=== PATIENT | female | born 2005 | race Caucasian/White ===

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

== ENCOUNTER 2024-06-19 15:06 | Emergency (ER) | payer OTHER, SELFPAY ==
[2024-06-19 15:17] VITALS: BP 127/75; PULSE 102; RESP 16; TEMP 37.2; O2SAT 100
--- NOTE | 2024-06-19 15:23 | ED.NAVMDI ---
HPI - Nausea/Vomiting/Diarrhea General Chief complaint: Nausea/Vomiting/Diarrhea Stated complaint: VOMITING Time Seen by Provider: 06/19/24 15:20 Source: patient Mode of arrival: ambulatory Limitations: no limitations History of Present Illness HPI Narrative: Melanie is an 17-year-old female patient presenting to the clinic today with complaints nausea and vomiting. She reports that she only has nausea vomiting prior to test taking at college. Feels overly anxious and then ends up vomiting. Denies any weight loss. Denies any chest pain, shortness of breath, or abdominal pain. She denies any chance of . She is not sexually active. Last menstrual period- current. Denies any urinary symptoms Related Data Allergies Allergy/AdvReac Type Severity Reaction Status Date / Time No Known Allergies Allergy Verified 12/10/23 12:41 Review of Systems Review of Systems: Pertinent positives per HPI. Patient denies any fever, chills, rash, headache, visual changes, dizziness, cough, runny nose, sore throat, shortness of breath, chest pain, palpitations, diarrhea, constipation, abdominal pain, or any urinary issues. PMFSH Comments At the time of my signature, I reviewed and agree with the nursing past medical, surgical, social, and family history. There is no relevant family history pertinent to the patient complaint. Exam Narrative: General: Well-developed, well nourished, in no apparent distress. Head: Normocephalic, atraumatic. Cardio: Regular rate and rhythm, s1 and s2 normal, no murmur appreciated. Resp: Clear to auscultation bilaterally, no rhonchi, rales, wheezing or rubs. Abdomen: Soft, pliable, bowel sounds present in all quadrants, non-tender to palpation, no organomegly, no CVAT tenderness. Course Course Emergency Course: Portions of this record may have been created with voice recognition software. Level of Care: Express Care Visit Vital Signs Vital signs: Vital Signs Temperature 37.2 C 06/19/24 15:17 Pulse Rate 102 H 06/19/24 15:17 Respiratory Rate 16 06/19/24 15:17 Blood Pressure 127/75 06/19/24 15:17 Pulse Oximetry 100 06/19/24 15:17 Temperature 37.2 C 06/19/24 15:17 Pulse Rate 102 H 06/19/24 15:17 Respiratory Rate 16 06/19/24 15:17 Blood Pressure 127/75 06/19/24 15:17 Pulse Oximetry 100 06/19/24 15:17 Vital signs reviewed MDM - Nausea/Vomiting/Diarrhea MDM Narrative Medical decision making narrative: At the time of visit patient is resting comfortably on the exam table. Patient appears to be nontoxic. Plan: We will send in a prescription for Zofran and discussed use of Benadryl prior to test taking. Also discussed speaking to a counselor. Supportive measures were discussed with the patient and they voiced understanding discharge instructions and agrees to treatment plan. Return precautions reviewed Differential Diagnosis Differential diagnosis: Likely gastroenteritis and other (Test taking anxiety, acute nausea vomiting) Discharge Plan Discharge Clinical Impression: Test anxiety, Acute nausea with nonbilious vomiting Patient Disposition: Home, Self-Care Condition: Stable Instructions: Antibiotic Form, Acute Nausea and Vomiting (ED), Anxiety (ED) Additional Instructions: Increase fluids and stay well hydrated Take ondansetron as needed for nausea May try taking Benadryl 30 minutes prior to taking and exam to see if this helps alleviate your anxiety Follow-up with counselor as discussed Follow-up with your primary care doctor as needed Prescriptions: New ondansetron 4 mg tablet,disintegrating 4 mg PO Q6H PRN (Reason: nausea and vomiting) 7 Days Qty: 30 0RF No Action amoxicillin 875 mg tablet 875 mg PO Q12H 10 Days Qty: 20 0RF promethazine-DM 6.25-15 mg/5 mL syrup 5 ml PO Q4-6H PRN (Reason: cough) Qty: 118 0RF Follow-up/Referrals: PHYSICIAN,[employer] FENCE INSTALLER [Primary Care Provider] - Time of Disposition: 1
== END 2024-06-19 15:29 | disposition home or self-care (01) ==
PROVIDERS: Emergency Provider Nurse Practitioner Family
DX: F41.9 Anxiety disorder, unspecified (principal); R11.2 Nausea with vomiting, unspecified
CPT/HCPCS: 99213; G0463

== ENCOUNTER 2024-08-11 13:11 | Emergency (ER) | payer OTHER, SELFPAY ==
[2024-08-11 13:18] VITALS: BP 101/82; PULSE 102; RESP 16; TEMP 36.9; O2SAT 98
--- NOTE | 2024-08-11 13:21 | ED.EAR ---
HPI - Ear Problem General Chief complaint: Ear Stated complaint: Ear Pain Time Seen by Provider: 08/11/24 13:21 Source: patient Mode of arrival: ambulatory Limitations: no limitations History of Present Illness HPI Narrative: 18 yo F presents with c/o nasal/sinus congestion with mild pressure for 4 days. L ear pain starting today. Afebrile. Not taking any OTC meds to treat symptoms. All Systems reviewed and negative except as noted above. Related Data Allergies Allergy/AdvReac Type Severity Reaction Status Date / Time No Known Allergies Allergy Verified 08/11/24 13:16 Review of Systems Review of Systems: CONSTITUTIONAL: Denies fever, chills, or sweats. EYES: Denies visual changes, redness, or discharge. ENT: Reports rhinorrhea, congestion, sinus pressure, left ear pain. Denies sore throat CARDIOVASCULAR: Denies chest pain, palpitations, or edema. RESPIRATORY: Denies cough or dyspnea. GASTROINTESTINAL: Denies abdominal pain, nausea, vomiting, or diarrhea. GENITOURINARY: Denies dysuria or hematuria. SKIN: Denies rash or itching. MUSCULOSKELETAL: Denies back pain, joint pain, or myalgia. NEUROLOGIC: Denies headache, numbness, or weakness. PSYCHIATRIC: Denies anxiety or depression. All other systems reviewed are negative, except as documented in HPI. PMFSH Comments At time of signature, agree with nursing past medical, surgical, social and family history. There is no relevant family history pertinent to the presenting complaint. Exam Narrative: GENERAL: This is a well-nourished, well-developed patient, in no apparent distress. HEAD: normocephalic, atraumatic. EYES: PERRL. Sclera clear/white. Vision is grossly intact. EARS: External ears normal, auditory canals clear and without drainage, left TM erythematous with fluid, slightly bulging. Right TM normal. Without perforation bilaterally. Hearing grossly intact. NOSE: External nose normal with no obvious nasal discharge, nares without redness, no rhinorrhea. THROAT: Mucous membranes moist, posterior pharynx clear. NECK: Neck supple, non-tender without lymphadenopathy, masses or thyromegaly. CARDIOVASCULAR: Regular rate and rhythm without murmurs, gallops, or rubs. RESPIRATORY: Clear to auscultation. Breath sounds equal bilaterally. No wheezes, rales, or rhonchi. SKIN: warm, Dry, intact with no suspicious lesions or rash, good texture and turgor. NEURO: awake, alert, and oriented to person, place and time. There were no obvious focal neurologic abnormalities. EXTREMITIES: No joint tenderness, effusion, or edema noted. Course Course Level of Care: Express Care Visit Vital Signs Vital signs: Vital Signs Temperature 36.9 C 08/11/24 13:18 Pulse Rate 102 H 08/11/24 13:18 Respiratory Rate 16 08/11/24 13:18 Blood Pressure 101/82 08/11/24 13:18 Pulse Oximetry 98 08/11/24 13:18 Temperature 36.9 C 08/11/24 13:22 Pulse Rate 102 H 08/11/24 13:22 Respiratory Rate 16 08/11/24 13:22 Blood Pressure 101/82 08/11/24 13:22 Pulse Oximetry 98 08/11/24 13:22 Reviewed Medical Decision Making MDM Narrative Medical decision making narrative: Patient is aware of diagnosis, understands and agrees to treatment plan. Anticipatory guidance given. Patient agrees to follow-up as directed and is aware of reasons to seek care at the emergency department. Portions of this record may have been created with voice recognition software Vital Signs Vital Signs: Vital Signs Temperature 36.9 C 08/11/24 13:18 Pulse Rate 102 H 08/11/24 13:18 Respiratory Rate 16 08/11/24 13:18 Blood Pressure 101/82 08/11/24 13:18 Pulse Oximetry 98 08/11/24 13:18 Temperature 36.9 C 08/11/24 13:22 Pulse Rate 102 H 08/11/24 13:22 Respiratory Rate 16 08/11/24 13:22 Blood Pressure 101/82 08/11/24 13:22 Pulse Oximetry 98 08/11/24 13:22 Discharge Plan Discharge Clinical Impression: Acute sinusitis Acute serous otitis media of left ear Qualifiers: Recurrence: not specified as recurrent Qualified Code(s): H65.02 - Acute serous otitis media, left ear Patient Disposition: Home, Self-Care Condition: Stable Instructions: Antibiotic Form, Sinusitis (ED) Additional Instructions: Take medications as prescribed. Take Tylenol or ibuprofen every 6-8 hours as needed for pain and fever. Follow-up with your doctor if symptoms are not improving. Prescriptions: New amoxicillin 875 mg tablet 875 mg PO Q12H 10 Days Qty: 20 0RF fluticasone propionate [Flonase Allergy Relief] 50 mcg/actuation spray,suspension 1 spray intranasal BID Qty: 16 0RF Rx Instructions: administer into each nostril loratadine [Claritin] 10 mg tablet 10 mg PO DAILY Qty: 30 0RF Follow-up/Referrals: PHYSICIAN,HEALTH AND SAFETY CONSULTANT [Primary Care Provider] - Time of Disposition: 13:27
[2024-08-11 13:22] VITALS: BP 101/82; PULSE 102; RESP 16; TEMP 36.9; O2SAT 98
== END 2024-08-11 13:29 | disposition home or self-care (01) ==
PROVIDERS: Emergency Provider Nurse Practitioner Family
DX: J01.90 Acute sinusitis, unspecified (principal); H65.02 Acute serous otitis media, left ear
CPT/HCPCS: 99213; G0463

== ENCOUNTER 2024-09-20 04:01 | Day surgery (SDC) | payer OTHER, SELFPAY ==
[2024-09-20] VITALS (18 sets, daily range): BP systolic 86–116; BP diastolic 58–89; PULSE 51–83; RESP 14–20; TEMP 36.2–37.1; O2SAT 96–100
--- NOTE | ~2024-09-20 | CT_ITS ---
EXAMINATION: CT abdomen pelvis w con DATE: 09/20/2024 08:10 INDICATION: Right lower quadrant abdominal pain TECHNIQUE: Computed tomography (CT) of the abdomen and pelvis was performed with 100 mL Omnipaque-350 intravenous contrast. Automated exposure control and iterative reconstruction technique were employe d. The dose-length product was 211.16 mGy-cm. COMPARISON: None FINDINGS: Lung bases are clear. Heart size is normal. No pericardial or pleural effusion. Liver, gallbladder, s pleen, pancreas, bilateral adrenal glands and kidneys are normal. There is mild inflammatory strandin g surrounding the tip of the appendix which is fluid-filled and dilated to 9 mm distal to a more prox imal appendicolith. Bowels are otherwise unremarkable with no obstruction. Bladder, anteverted uterus and bilateral adnexa are unremarkable. No abscess or free intraperitoneal gas or fluid. No pathologi tulio enlarged abdominal or pelvic lymphadenopathy. Minimal lumbar levocurvature. IMPRESSION: 1. Radiographically uncomplicated acute appendicitis. Reviewed, dictated and finalized at location B. RO[facility]
[2024-09-20 05:53] LABS: BEDSIDEPREGUCG Negative (Negative)
[2024-09-20 06:01] LABS: Basophils Absolute Auto 0.1 K/mm3 (0.0-0.1); Basophils Percent Auto 0.4 % (0.2-1.2); Eosinophils Absolute Auto 0.1 K/mm3 (0-0.3); Eosinophils Percent Auto 0.6 % (0-4.4); Hematocrit 36.1 % (37.0-47.0); Hemoglobin 11.6 g/dL (12.0-15.0); Immature Granulocyte Absolute 0.03 K/mm3 (0.00-0.031); Immature Granulocyte Percent A 0.2 % (0-0.5); Lymphocytes Absolute Auto 1.34 K/mm3 (0.9-3.2); Lymphocytes Percent Auto 10.4 % (18.3-44.2); Mean Corpuscular HGB Conc 32.1 g/dl (32-36); Mean Corpuscular Hemoglobin 27.7 pg (26-34); Mean Corpuscular Volume 86.2 fl (80-100); Monocytes Absolute Auto 0.9 K/mm3 (0.1-0.6); Monocytes Percent Auto 7.1 % (2.6-8.5); Neutrophils Absolute Auto 10.5 K/mm3 (1.3-6.7); Neutrophils Percent Auto 81.3 % (45.5-73.1); Platelet Count Result 209 k/mm3 (150-375); Red Blood Count 4.19 M/mm3 (4.2-5.4); Red Cell Distribution Width 14.7 % (11.5-14.5); White Blood Count 12.9 K/mm3 (4.5-10.0)
[2024-09-20 06:03] LABS: Add Urine Microscopic? NO; Appearance Urine Clear (Clear); Bilirubin Urine Negative (Negative); Blood Urine Negative (Negative); Color Urine Yellow (Yellow); Glucose Urine UA Negative (Negative); Ketones Urine Trace mg/dL (Negative); Leukocyte Esterase Ur Negative LEU/UL (Negative); Nitrate Urine Negative (Negative); Protein Urine Negative (Negative); Specific Grav Ur 1.021 (1.001-1.035); Urobilinogen Urine 0.2 mg/dL (<2.0); pH Urine 6.5 (5.0-9.0)
[2024-09-20 06:09] LABS: Alanine Aminotransferase 11 U/L (6-35); Albumin Level 4.2 g/dL (3.5-5.1); Alkaline Phosphatase 79 U/L (38-126); Anion Gap 3 mmol/L (4-12); Aspartate Amino Transferase 21 U/L (14-36); Bilirubin,Total 0.6 mg/dL (0.2-1.3); Blood Urea Nitrogen 15 mg/dL (7-17); Calcium 9.3 mg/dL (8.4-10.2); Carbon Dioxide 25 mmol/L (22-30); Chloride 109 mmol/L (98-107); Estimated CRCL calculation 83 ml/min; Estimated Glomerular Filt Rate > 60; Glucose 94 mg/dL (65-110); Lipase 85 U/L (23-300); Potassium 3.5 mmol/L (3.4-5.0); Sodium 137 mmol/L (137-145)
--- NOTE | 2024-09-20 07:43 | ED.ABDPAIN ---
HPI - Abdominal Pain General Chief Complaint: Abdominal Pain Stated Complaint: abd pain Time Seen by Provider: 09/20/24 07:02 Source: patient, EMS, RN notes reviewed and other Mode of arrival: EMS Limitations: no limitations History of Present Illness HPI narrative: Otherwise healthy 19-year-old female who presents with a right lower quadrant pain beginning at approximately midnight. Her last menstrual period was last night and normal in duration and flow. She is sexually active. She denies any vaginal bleeding or discharge. Denies any dysuria, hematuria, urgency or frequency. Last oral intake was yesterday and she does continue to have an appetite, no anorexia. 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 No prior abdominal surgeries. She denies any fever chills. She has been nauseated and vomiting but it has been nonbloody and nonbilious. Last bowel movement was yesterday and no diarrhea, constipation, or blood. She states the pain began all over, particular upper abdomen and radiated to her back and was generalized but then seemed to settle into the right lower quadrant. Related Data Allergies Allergy/AdvReac Type Severity Reaction Status Date / Time No Known Allergies Allergy Verified 09/20/24 11:41 [facility] Past Medical History Medical History No pertinent past medical history Surgical History Surgical History No pertinent past surgical history Social History Social History Smoking status: Never smoker Alcohol intake: never Substance use: never Exam Narrative: GENERAL: Well-appearing, well-nourished, and in no acute distress. HEAD: Normocephalic, atraumatic. EYES: Non injected, non icteric ENT: Nares clear, no rhinorrhea or epistaxis. NECK: Supple. CHEST: Speaking in full sentences. No respiratory distress. HEART: Regular rate and rhythm. . ABDOMEN: Soft, nondistended. No tenderness to palpation at McBurney's point but does have localized tenderness to palpation in the right iliac fossa. Rovsing sign negative. EXTREMITIES: Normal range of motion. No lower extremity edema. SKIN: Warm, dry, no rash. NEURO: No focal deficits. Alert and oriented x3. PSYCH: Normal mood and affect. Course Vital Signs Vital signs: Vital Signs Temperature 98.3 F 09/20/24 04:08 Pulse Rate 58 L 09/20/24 04:08 Respiratory Rate 20 09/20/24 04:08 Blood Pressure 106/79 09/20/24 04:08 Pulse Oximetry 97 09/20/24 04:08 Oxygen Delivery Room Air 09/20/24 04:08 Temperature 97.1 F L 09/20/24 12:44 Pulse Rate 69 09/20/24 15:25 Respiratory Rate 16 09/20/24 15:25 Blood Pressure 105/65 09/20/24 15:25 Pulse Oximetry 100 09/20/24 13:53 Oxygen Delivery Room Air 09/20/24 13:53 Oxygen Flow Rate 8 09/20/24 13:25 MDM - Abdominal Pain MDM Narrative Medical decision making narrative: Patient presents with right lower quadrant pain beginning at midnight and associated with nausea and vomiting. In the emergency department she is afebrile with vital signs notable for borderline/mild bradycardia. Bedside test negative. Cornelius Score RLQ tenderness (No 0, Yes +2): 2 (though more pelvic) Temp greater than37.3C (No 0, Yes +1): 0 Rebound tenderness (No 0, Yes +1): 0 Migration of pain to the RLQ (No 0, Yes +1): 1 Anorexia (No 0, Yes +1): 0 Nausea/vomiting (No 0, Yes +1): 1 Leukocytosis greater than 10K (No 0, Yes +2): 2 Leukocyte left shift greater than 75% neutrophils (No 0, Yes +1): 1 Total Result = 7 - probable/likely appendicitis Other causes of right lower quadrant pain in my differential diagnosis include but are not limited to nephrologic diseases like kidney stone, ovarian pathology like torsion or tubo-ovarian abscess, and other GI pathology like colitis or diverticulitis. She is given analgesic and antiemetic medication will await imaging. This does show acute appendicitis. Patient informed. Dr. Pearson is consulted and his FINANCIAL SYSTEMS DIRECTOR comes to the ED to first evaluate patient. Patient is made NPO and cephalosporin is ordered. Patient will be taken to the operating room yet today and in the interim admission orders placed under Dr. Pearson. Differential Diagnosis Differential diagnosis: Likely abdominal pain, acute appendicitis, constipation, pancreatitis and other (Spectrum of including ectopic ; pathology including ovarian cyst) Lab Data Attestation: I reviewed the patient's lab results. Lab results narrative: Leukocytosis and normocytic anemia 09/20/24 05:46 09/20/24 05:46 Labs: Lab Results 09/20/24 09/20/24 09/20/24 Range/Units 05:46 05:51 08:44 WBC 12.9 H (4.5-10.0) K/mm3 RBC 4.19 L (4.2-5.4) M/mm3 Hgb 11.6 L (12.0-15.0) g/dL Hct 36.1 L (37.0-47.0) % MCV 86.2 (80-100) fl MCH 27.7 (26-34) pg MCHC 32.1 (32-36) g/dl RDW 14.7 H (11.5-14.5) % Plt Count 209 (150-375) k/mm3 MPV 12.0 H (7.4-10.4) fl Immature Gran % (Auto) 0.2 (0-0.5) % Neut % (Auto) 81.3 H (45.5-73.1) % Lymph % (Auto) 10.4 L (18.3-44.2) % [place] % (Auto) 7.1 (2.6-8.5) % Eos % (Auto) 0.6 (0-4.4) % Baso % (Auto) 0.4 (0.2-1.2) % Lymph # (Auto) 1.34 (0.9-3.2) K/mm3 [place] # (Auto) 0.9 H (0.1-0.6) K/mm3 Eos # (Auto) 0.1 (0-0.3) K/mm3 Baso # (Auto) 0.1 (0.0-0.1) K/mm3 Abs Immat Gran (auto) 0.03 (0.00-0.031) K/mm3 Absolute Neuts (auto) 10.5 H (1.3-6.7) K/mm3 Absolute Nucleated RBC 0.000 (0.0-0.012) K/mm3 Nucleated RBC % 0.0 (0.0-0.2) % Sodium 137 (137-145) mmol/L Potassium 3.5 (3.4-5.0) mmol/L Chloride 109 H (98-107) mmol/L Carbon Dioxide 25 (22-30) mmol/L Anion Gap 3 L (4-12) mmol/L BUN 15 (7-17) mg/dL Creatinine 0.80 (0.7-1.0) mg/dL Estim Creat Clear Calc 83 ml/min Estimated GFR > 60 (59 - ) Glucose 94 (65-110) mg/dL Calcium 9.3 (8.4-10.2) mg/dL Total Bilirubin 0.6 (0.2-1.3) mg/dL AST 21 (14-36) U/L ALT 11 (6-35) U/L Alkaline Phosphatase 79 (38-126) U/L Total Protein 7.0 (6.3-8.2) g/dL Albumin 4.2 (3.5-5.1) g/dL Lipase 85 (23-300) U/L Urine Color Yellow (Yellow) Urine Appearance Clear (Clear) Urine pH 6.5 (5.0-9.0) Ur Specific [place] 1.021 (1.001-1.035) Urine Protein Negative (Negative) mg/dL Urine Glucose (UA) Negative (Negative) mg/dL Urine Ketones Trace H (Negative) mg/dL Ur Blood (Man) Negative (Negative) Urine Nitrate Negative (Negative) Urine Bilirubin Negative (Negative) Urine Urobilinogen 0.2 (<2.0) mg/dL Leukocyte Esterase Rfl Negative (Negative) MONIKA/UL POC Urine HCG, Qual Negative (Negative) Influenza A (RT-PCR) Negative (Negative) Influenza B (RT-PCR) Negative (Negative) SARS-CoV-2 RNA (RT-PCR) Negative (Negative) Imaging Data Radiologist's impression: ITS Impressions Abdomen/Pelvis CT 09/20/24 08:18 IMPRESSION: 1. Radiographically uncomplicated acute appendicitis. Discharge Plan Discharge Clinical Impression: Leukocytosis, Normocytic anemia Acute appendicitis Qualifiers: Acute appendicitis type: with localized peritonitis Appendicitis gangrene presence: without gangrene Appendicitis perforation presence: without perforation Appendicitis abscess presence: without abscess Qualified Code(s): K35.30 - Acute appendicitis with localized peritonitis, without perforation or gangrene Patient Disposition: Still a Patient Condition: Stable
[2024-09-20] MEDS: ONDANSETRON INJ 4 MG/2 ML VIAL IV PUSH (07:54)
[2024-09-20] MEDS: MORPHINE SULFATE (*CRX) 4 MG/ML INJ IV PUSH (07:54)
[2024-09-20 09:27] LABS: Influenza A QL RT-PCR Negative (Negative); Influenza B QL RT-PCR Negative (Negative); SARS-CoV-2 RNA PCR Negative (Negative)
[2024-09-20] MEDS: cefoTEtan DISODIUM INJ 2 GM in DEXTROSE 5% IN WATER 50 ML IVPB (10:04)
--- NOTE | 2024-09-20 10:35 | P.HP_ITS ---
H&P: HPI History of Present Illness Date/Time: 09/20/24 10:35 Chief Complaint: Right lower quadrant abdominal pain Narrative: This is a 19-year-old female who is otherwise healthy and came into the ED today with complaints of right lower quadrant abdominal pain. She woke up with a sudden onset of abdominal pain around midnight last night. Her pain was initially generalized across her upper abdomen and began to localize into the right lower quadrant this morning. The pain was constant and had no alleviating factors. She decided to come into the ED for evaluation. [place] [address]. UA negative for UTI. Urine negative. She reports finishing her last menstrual cycle [address] scan of the abdomen and pelvis with contrast showed uncomplicated appendicitis. She is now seen in the ED for surgical evaluation. No previous abdominal surgeries. Review of Systems Review of Systems: All systems reviewed & are unremarkable except as noted in HPI and below PMFSH Past Medical History Medical History No pertinent past medical history Surgical History Surgical History No pertinent past surgical history Social History Social History Smoking status: Never smoker Alcohol intake: never Substance use: never Meds Home Medications and Allergies Home Medications ?Medication ?Instructions ?Recorded ?Confirmed ?Type amoxicillin 875 mg tablet 875 mg PO Q12H 10 days #20 tabs 08/11/24 Rx fluticasone propionate 50 1 spray intranasal BID #16 grams 08/11/24 Rx mcg/actuation nasal spray,suspension (Flonase Allergy Relief) loratadine 10 mg tablet (Claritin) 10 mg PO DAILY #30 tabs 08/11/24 Rx Allergies Allergy/AdvReac Type Severity Reaction Status Date / Time No Known Allergies Allergy Verified 09/20/24 05:23 Vital Signs Vital Signs - 24 hr 09/20/24 04:08 09/20/24 05:22 09/20/24 06:48 Temperature 98.3 F Pulse Rate 58 L 70 60 Respiratory Rate 20 18 17 Blood Pressure 106/79 110/85 109/69 Pulse Oximetry 97 100 98 Oxygen Delivery Room Air Exam Const: General: comfortable and no acute distress Nutritional Appearance: thin Orientation/consciousness: patient oriented x3 HENMT: Head: normocephalic and atraumatic Ears: hearing grossly normal bilaterally Mouth: Yes moist mucous membranes Eyes: General: appearance normal, both eyes and all related structures Pupils: Equal, round and reactive pupils present Neck: Neck: normal visual inspection and full ROM Resp: Effort & Inspection: no respiratory distress Auscultation: clear to auscultation bilaterally Cardio: Rate: regular rate Rhythm: regular rhythm Heart sounds: S1 normal heart sound present and S2 normal heart sound present Peripheral pulses: Peripheral pulses 2+ throughout GI: Inspection: non-distended GI Palp: Yes Soft to palpation, Yes Tenderness to palpation present (GI) (focal tenderness in the RLQ), No Guarding due to palpation present (GI), Yes No hepatosplenomegaly present, No Hernia present and No Rebound tenderness present Percussion: Yes normal to percussion Auscultation: normal bowel sounds Skin: General skin exam: normal color Neuro: General: moves all extremities and no focal motor deficits Speech: normal speech Motor exam (neuro): 5/5 motor strength present throughout Extrem: General: normal to inspection and no edema Psych: Mental Status: mental status grossly normal Attitude: cooperative Insight: Good insight present (Psych) Judgement: Good judgement present (Psych) H&P: Results Labs Labs: Short CBC 09/20/24 Range/Units 05:46 WBC 12.9 H (4.5-10.0) K/mm3 Hgb 11.6 L (12.0-15.0) g/dL Hct 36.1 L (37.0-47.0) % Plt Count 209 (150-375) k/mm3 BMP 09/20/24 05:46 Sodium 137 Potassium 3.5 Chloride 109 H Carbon Dioxide 25 BUN 15 Creatinine 0.80 Glucose 94 Calcium 9.3 Liver Function 09/20/24 Range/Units 05:46 Total Bilirubin 0.6 (0.2-1.3) mg/dL AST 21 (14-36) U/L ALT 11 (6-35) U/L Alkaline Phosphatase 79 (38-126) U/L Albumin 4.2 (3.5-5.1) g/dL Urine 09/20/24 Range/Units 05:46 Urine Color Yellow (Yellow) Urine Appearance Clear (Clear) Urine pH 6.5 (5.0-9.0) Ur Specific [place] 1.021 (1.001-1.035) Urine Protein Negative (Negative) mg/dL Urine Glucose (UA) Negative (Negative) mg/dL Imaging CT scan - abdomen: Radiologist's impression: ITS Impressions Abdomen/Pelvis CT 09/20/24 08:18 IMPRESSION: 1. Radiographically uncomplicated acute appendicitis. Assessment and Plan Assessment and plan (1) Acute appendicitis: Qualifiers: Acute appendicitis type: with localized peritonitis Appendicitis abscess presence: without abscess Appendicitis gangrene presence: without gangrene Appendicitis perforation presence: without perforation Qualified Code(s): K35.30 - Acute appendicitis with localized peritonitis, without perforation or gangrene Code(s): K35.80 - Unspecified acute appendicitis Status: Acute Assessment and Plan: CT scan reviewed and discussed with the patient. There is evidence of acute appendicitis. No perforation or abscess evident on CT. We discussed both nonoperative treatment versus proceeding with surgery. We discussed the details of a laparoscopic appendectomy, possible open, under general anesthesia that would be done by Dr. Pearson. Description of the procedure, risks, benefits, alternatives, and expected recovery were discussed. She wishes to proceed with surgery. Will keep her NPO and continue IV antibiotics, IV fluids, and analgesics as needed pre-operatively. She has been added to the surgery schedule for today. Plan I have discussed the patient's case and plan of care with Dr. Pearson.
--- NOTE | 2024-09-20 11:38 | P.PNAN_ITS ---
Anes - Initial Pre Proc Eval Procedure: Operation Date: 09/20/24 12:00 Proposed Procedures p Laparoscopic Appendectomy - Calderon Pearson MD Date/Time: 09/20/24 11:38 Surgeon: Calderon Pearson MD Pre Op Diagnosis: abd pain Patient Data Age: 19 Gender: F Height: 1.7 m Weight: 53.52 kg Last Vital Signs Temp 36.8 C 09/20/24 04:08 Pulse 63 09/20/24 10:30 Resp 16 09/20/24 10:30 BP 104/74 09/20/24 10:30 Pulse Ox 100 09/20/24 10:30 O2 Del Method Room Air 09/20/24 04:08 Allergies Allergy/AdvReac Type Severity Reaction Status Date / Time No Known Allergies Allergy Verified 09/20/24 11:41 Home Medications ?Medication ?Instructions ?Recorded ?Confirmed ?Type No Home Medications 09/20/24 09/20/24 History Laboratory Tests 09/20/24 09/20/24 09/20/24 05:46 05:51 08:44 WBC 12.9 H K/mm3 (4.5-10.0) RBC 4.19 L M/mm3 (4.2-5.4) Hgb 11.6 L g/dL (12.0-15.0) Hct 36.1 L % (37.0-47.0) MCV 86.2 fl (80-100) MCH 27.7 pg (26-34) MCHC 32.1 g/dl (32-36) RDW 14.7 H % (11.5-14.5) Plt Count 209 k/mm3 (150-375) MPV 12.0 H fl (7.4-10.4) Immature Gran % (Auto) 0.2 % (0-0.5) Neut % (Auto) 81.3 H % (45.5-73.1) Lymph % (Auto) 10.4 L % (18.3-44.2) [place] % (Auto) 7.1 % (2.6-8.5) Eos % (Auto) 0.6 % (0-4.4) Baso % (Auto) 0.4 % (0.2-1.2) Lymph # (Auto) 1.34 K/mm3 (0.9-3.2) [place] # (Auto) 0.9 H K/mm3 (0.1-0.6) Eos # (Auto) 0.1 K/mm3 (0-0.3) Baso # (Auto) 0.1 K/mm3 (0.0-0.1) Abs Immat Gran (auto) 0.03 K/mm3 (0.00-0.031) Absolute Neuts (auto) 10.5 H K/mm3 (1.3-6.7) Absolute Nucleated RBC 0.000 K/mm3 (0.0-0.012) Nucleated RBC % 0.0 % (0.0-0.2) Sodium 137 mmol/L (137-145) Potassium 3.5 mmol/L (3.4-5.0) Chloride 109 H mmol/L (98-107) Carbon Dioxide 25 mmol/L (22-30) Anion Gap 3 L mmol/L (4-12) BUN 15 mg/dL (7-17) Creatinine 0.80 mg/dL (0.7-1.0) Estim Creat Clear Calc 83 ml/min Estimated GFR > 60 (59 - ) Glucose 94 mg/dL (65-110) Calcium 9.3 mg/dL (8.4-10.2) Total Bilirubin 0.6 mg/dL (0.2-1.3) AST 21 U/L (14-36) ALT 11 U/L (6-35) Alkaline Phosphatase 79 U/L (38-126) Total Protein 7.0 g/dL (6.3-8.2) Albumin 4.2 g/dL (3.5-5.1) Lipase 85 U/L (23-300) Urine Color Yellow (Yellow) Urine Appearance Clear (Clear) Urine pH 6.5 (5.0-9.0) Ur Specific [place] 1.021 (1.001-1.035) Urine Protein Negative mg/dL (Negative) Urine Glucose (UA) Negative mg/dL (Negative) Urine Ketones Trace H mg/dL (Negative) Ur Blood (Man) Negative (Negative) Urine Nitrate Negative (Negative) Urine Bilirubin Negative (Negative) Urine Urobilinogen 0.2 mg/dL (<2.0) Leukocyte Esterase Rfl Negative MONIKA/UL (Negative) POC Urine HCG, Qual Negative (Negative) Influenza A (RT-PCR) Negative (Negative) Influenza B (RT-PCR) Negative (Negative) SARS-CoV-2 RNA (RT-PCR) Negative (Negative) Patient hx anesthesia problems: none Family hx anesthesia problems: none Results Review: All pre-operative results and documents have been reviewed as part of the pre- operative evaluation. [facility] Past Medical History Medical History No pertinent past medical history Surgical History Surgical History No pertinent past surgical history Social History Social History Smoking status: Never smoker Alcohol intake: never Substance use: never Anes - Eval Final PreProcedure Day of Procedure 09/20/24 11:38 Patient weight: normal Heart: regular rate and rhythm Lungs: clear to auscultation Airway: Mallampati scale class II Neurological: alert and oriented Last oral intake: >/= 8 hours ASA classification: II Emergent: yes Anesthetic plan: proceed Anesthesia type and monitoring: general ETT and standard monitoring Results Review: All pre-operative results and documents have been reviewed as part of the pre- operative evaluation. Informed Consent: The patient's anesthetic plan and its attendant risks and benefits were discussed with the patient/family/POA. Questions were solicited and answers provided to the satisfaction of the patient/family/POA.
--- NOTE | 2024-09-20 11:52 | WPDHPUPDATE1 ---
History and Physical Update Update Date/Time: 09/20/24 11:52 History and Physical has been reviewed, including an updated exam of the patient. There are NO changes in the patient's condition. Risks, benefits, and alternatives have been discussed and questions answered. Patient agrees to proceed with procedure.
[2024-09-20] MEDS: BUPIVACAINE/EPINEPHRINE 0.5% 30 ML VIAL INFILTRATE (12:21)
[2024-09-20] MEDS: LACTATED RINGERS 1,000 ML 30 ML IV CONT ×2 (12:44)
--- NOTE | 2024-09-20 12:49 | P.OP_ITS ---
Procedure Note - Detailed Date of Procedure 09/20/24 Pre-op Diagnosis Acute appendicitis Post-op Diagnosis Same Procedure Performed Laparoscopic appendectomy Surgeon Calderon Pearson MD [employer] Frausto [facility] Anesthesia General and Local Indications Right lower quadrant pain, leukocytosis, CT scan consistent with acute appendicitis Findings Acute non perforated appendicitis Description of Procedure Patient was taken to surgery and induced into general anesthesia. Trocars were placed in the usual fashion using applied Medical optical trocars and a 5 mm camera. Patient was placed in Trendelenburg in the right-side elevated. The appendix was found and elevated. There were some adhesions of the appendix to the right lateral pelvic sidewall. These were taken down. The appendix was obviously acutely inflamed but there was no evidence of gangrene or perforation. The mesentery of the appendix was then exposed. Cautery was used to divide the appendiceal mesentery including the appendiceal artery. No bleeding occurred. We skeletonized the base of the appendix. A Vicryl endoloop was used to ligate the appendix at its base. The appendix was then amputated just above the ligature. The mucosa of the appendiceal stump was cauterized. The appendix was placed immediately in an Endo-Catch bag. It was retrieved through the 10 11 left lower quadrant trocar site. We replaced the trocar and then reviewed the areas of dissection as well as the appendiceal stump. All looked good. We evacuated CO2 and removed the trocar sleeves. Skin wounds were closed with sub cuticular 4-0 Monocryl skin suture. The wounds were dressed with Exofin surgical adhesive. Patient was awakened and taken to recovery in good condition. Sponge needle counts were correct x2. Estimated Blood Loss -5 Drains No Packing No Pathology Yes (Appendix) Complications None Condition Stable Disposition PACU [facility] Billing Surgery - Charge Forward: Surgery Billing (Laparoscopic appendectomy)
[2024-09-20] MEDS: oxyCODONE HCL (*CRX) 5 MG TAB IR PO (14:47)
== END 2024-09-20 15:32 | disposition home or self-care (01) ==
LOC: ANHED 09:03 → ANHSURGERY 09:23
PROVIDERS: Emergency Medicine; Emergency Provider Student in an Organized Health Care Education/Training Program; Visit Provider Surgery
PROC: 0DTJ4ZZ Resection of Appendix, Percutaneous Endoscopic Approach (ICD-10-PCS; CPT 44970; principal; 2024-09-20 12:00)
DX: K35.30 Acute appendicitis with localized peritonitis, without perforation or gangrene (principal); G89.18 Other acute postprocedural pain
CPT/HCPCS: 44970; 36415; 74177; 80053; 81003; 81025; 83690; 85025; 87636; 88304; 96365; 96366; 96375; 96376; 99285; A9270; J0330; J1100; J2250; J2270; J2405; J2704; J3010; J7030; J7120; Q9967

== ENCOUNTER 2024-12-31 21:46 | Emergency (ER) | payer OTHER, SELFPAY ==
--- NOTE | ~2024-12-31 | XR_ITS ---
Portable chest x-ray Comparison: None Clinical History: Back pain Findings: Questionable minimal haziness left lung base. Right lung clear. Possible COPD. Cardiomedi astinal silhouette is unremarkable. Bones and soft tissues are unremarkable. Impression: Questionable minimal haziness left lung base. Subtle pneumonia is a consideration. Possible COPD. Reviewed, dictated and finalized at [facility]. Impression: Questionable minimal haziness left lung base. Subtle pneumonia is a considerati on. Possible COPD.
--- OUTSIDE RECORDS SUMMARY | 2024-12-31 21:48 | XMS_ITS | Data Portability ---
Author Organization [facility] [place] Address [address] [place] [address] Assessment No assessment recorded. Plan of Treatment Reminders Order Date Submit Date Provider Last Modified By Organization Details Last Modified Time Details Appointments None recorded. Lab test, urine 2024 025 [email or web address] [place], [address], [place], [address], 16:53:54 unlisted lab - women's health swab plus, ANGÉLICA 2024 025 [facility] (Lab), [address], [place], [address], 15:18:05 Referral None recorded. Procedures None recorded. Surgeries None recorded. Imaging US, pelvis 2024 025 [email or web address] [place], [address], [address], [place], [address], 22:08:38 US, transvagina l 2024 025 [facility], [address], [address], [place], [address], 5 18:30:04 US, pelvis, complete 2024 025 [facility], [address], [place], [address], 5 04:02:31 Medication Orders Macrobid 100 mg capsule 2023 024 [email or web address] [id number] [facility], [address], [place], [address], 5 16:03:05 fluconazole 150 mg tablet 2023 024 [email or web address] [id number], [address], [place], [address], 5 16:03:05 Patient TargetsNo targets recorded. Patient InstructionsNo instructions recorded. Reason for Referral None Reported. Results Created Date Observation Date Name Description Value Unit Range Abnormal Flag Note LastModifiedBy Organization Detail LastModifiedTime 12/02/19 24 12/02/2023 CT/GC AND TRICH OMONA S VAGIN RADHA (RRNA ), SWAB chlamydia trachomatis, PCR Negati ve negati ve Not Available [facility] (Lab) [address], [place], [address], 12/05/2023 10:33:52 12/02/19 24 12/02/2023 CT/GC AND TRICH OMONA S VAGIN RADHA (RRNA ), SWAB neisseria gonorrhoeae, PCR Negati ve negati ve Not Available [facility] (Lab) [address], [place], [address], 12/05/2023 10:33:52 12/02/19 24 12/02/2023 CT/GC AND TRICH OMONA S VAGIN RADHA (RRNA ), SWAB trichomonas vaginalis ribosomal RNA (rrna) Negati ve negati ve Not Available [facility] (Lab) [address] [place], [address], 12/05/2023 10:33:52 12/02/19 24 12/02/2023 VAGIN ITIS/ VAGIN OSIS, DNA PROBE nay sp. detection, direct probe Positi ve negati ve abnormal Not Available [facility] (Lab) [address], [place], [address], 12/05/2023 10:33:52 12/02/19 24 12/02/2023 VAGIN ITIS/ VAGIN OSIS, DNA PROBE gardnerella vag. detection, direct probe Negati ve negati ve Not Available [facility] (Lab) [address] [place], [address], 12/05/2023 10:33:52 12/02/19 24 12/02/2023 VAGIN ITIS/ VAGIN OSIS, DNA PROBE trichomonas vag. detection, direct probe Negati ve negati ve Not Available [facility] (Lab) [address], [place], [address], 12/05/2023 10:33:52 12/18/19 25 12/17/2024 WOMEN 'S HEALT H SWAB PLUS, ANGÉLICA bacterial vaginosis (bv), tma Positi ve negati ve abnormal Not Available [facility] (Lab) [address], [place], [address], 12/18/2024 15:18:05 12/18/19 25 12/17/2024 WOMEN 'S HEALT H SWAB PLUS, ANGÉLICA nay species, tma Negati ve negati ve Not Available [facility] (Lab) [address] [place], [address], 12/18/2024 15:18:05 12/18/19 25 12/17/2024 WOMEN 'S HEALT H SWAB PLUS, ANGÉLICA nay glabrata, tma Negati ve negati ve Not Available [facility] (Lab) [address] [place], [address], 12/18/2024 15:18:05 12/18/19 25 12/17/2024 WOMEN 'S HEALT H SWAB PLUS, ANGÉLICA trichomonas vaginalis, tma Negati ve negati ve Not Available [facility] (Lab) [address] [place], [address], 12/18/2024 15:18:05 12/18/19 25 12/17/2024 WOMEN 'S HEALT H SWAB PLUS, ANGÉLICA chlamydia trachomatis, PCR Negati ve negati ve Not Available [facility] (Lab) [address], [place], [address], 12/18/2024 15:18:05 12/18/19 25 12/17/2024 WOMEN 'S HEALT H SWAB PLUS, ANGÉLICA neisseria gonorrhoeae, PCR Negati ve negati ve Bacte rial vagin osis detec ts the follo wing bacte kelly assoc iated with bacte rial vagin osis (BV): Lacto bacil jose antonio (L. gasse ri, L. crisp atus and L. jense dominic), Gardn erell a vagin radha, and Atopo bium vagin ae. A singl e quali tativ e resul t is repor saroj base on instr ument softw are to deter mine BV posit senait or negat senait statu s. The Stacey [facility] speci es group tests for C. albic ans, C. tropi calis , C. parap carlos is, C. dubli niens is. Testi ng is perfo rmed using the Trans cript ion Media saroj Ampli ficat ion metho d. Tests for Stacey da glabr nehemias, Trich omona s vagin radha, Chlam ydia trach omati s, and Neiss eria gonor rhoea e are also inclu ded in this panel . Not Available [facility] (Lab) [address], [place], [address], 12/18/2024 15:18:05 12/18/1912/17/2024 pregn laura test, urine HCG negati ve Not Available [place] [address], [place], [address], 12/17/2024 16:53:48 12/19/19 25 12/19/2024 US, gavi nam No observ ation record ed. [email or web address] [place] [address], [place], [address], 12/19/2024 18:29:54 12/19/19 25 12/19/2024 US, trans vagin al No observ ation record ed. [email or web address] [place] [address], [place], [address], 12/19/2024 18:30:04 12/19/19 25 12/18/2024 US, pelvi s No observ ation record ed. [facility] [address], [place], [address], 12/31/2024 18:49:14 Result Notes None recorded. Procedures Surgical History None recorded. Imaging Results Imaging Date Name Status LastModified by Organization Details LastModified Time 12/19/2024 US, pelvis completed [email or web address] [place] [address], [place], [address], 12/19/2024 18:29:54 12/19/2024 [email or web address] [address], [place], [address], 12/19/2024 18:30:04 12/18/2024 US, pelvis completed [facility] [address], [place], [address], 12/31/2024 18:49:14 Procedure Notes None recorded. Medical Equipment None Reported. Allergies No known drug allergies Medications Name Sig Start Date Stop Date Status Note LastModified by Organization Details LastModified Time fluconazole 150 mg tablet take 1 tablet by mouth now, repeat in 7 days if needed 12/14 completed Not Available Not Available Not Available metronidazo le 500 mg tablet TAKE 1 TABLET BY MOUTH EVERY 12 HOURS FOR 7 DAYS active Not Available Not Available No t Available ketorolac 10 mg tablet TAKE 1 TABLET BY MOUTH EVERY 6 HOURS FOR 4 DAYS active Not Available Not Available No t Available Macrobid 100 mg capsule Take 1 capsule every 12 hours by oral route for 7 days. 12/14 completed Not Available Not Available Not Available oxycodone-a cetaminophe n 5 mg-325 mg tablet TAEK 1/2 - 1 TABLET BY MOUTH EVERY 4 HOURS NEEDED FOR PAIN active Not Available Not Available No t Available amoxicillin 875 mg tablet TAKE 1 TABLET BY MOUTH EVERY 12 HOURS FOR 10 DAYS active Not Available Not Available No t Available methylpredn isolone 4 mg tablets in a dose pack TAKE 6 TABLETS ON DAY 1 DIRECTED ON PACKAGE AND DECREASE BY 1 TAB EACH DAY FOR A TOTAL OF 6 DAYS active Not Available Not Available No t Available ondansetron 4 mg disintegrat ing tablet DISSOLVE 1 TABLET BY MOUTH EVERY 6 HOURS NEEDED FOR NAUSEA AND VOMITING FOR 7 DAYS active Not Available Not Available No t Available fluticasone propionate 50 mcg/actuati on nasal spray,suspe nsion INSTILL 1 SPRAY INTRANASA LLY TWICE A DAY ADMINISTE R INTO EACH NOSTRIL active Not Available Not Available No t Available loratadine 10 mg tablet TAKE 1 TABLET BY MOUTH EVERY DAY active Not Available Not Available No t Available Vitals Date Recorded Body height Body mass index (BMI) Body mass index (BMI) Percentile per age and sex Body weight Systolic blood pressure Diastolic blood pressure Provider Name and Address Organization Details Last Updated DateTime 4 170.18 cm 18.7 kg/m2 13 % 92861.9 3 g 122 mm[Hg] 77 mm[Hg] Claudine Trivedi [facility] 4 12:01:33 Date Recorded Body height Body mass index (BMI) Body mass index (BMI) Percentile per age and sex Body weight Systolic blood pressure Diastolic blood pressure Provider Name and Address Organization Details Last Updated DateTime 5 170.18 cm 17.9 kg/m2 5 % 62224.5 3 g 114 mm[Hg] 80 mm[Hg] Alison Katerina [facility] 5 16:08:27 Social History Question Answer Notes LastModified by Paul ion Details LastModified Time In The 14 Days Before Symptom Onset, Have You Had Close Contact With A Laboratory-confirmed COVID-19 While That Case Was Ill? No Information not available 12/02/2023 In The 14 Days Before Symptom Onset, Have You Had Close Contact With A Person Who Is Under Investigation For COVID-19 While That Person Was Ill? No Information not available 12/02/2023 Have You Been To An Area Known To Be High Risk For COVID-19? No Information not available 12/02/2023 Sex: Unknown Functional Status None recorded. Mental Status None recorded. Family History Relationship Description Onset Age of this Age Resolved Age Notes LastModified by Organization Details LastModified Time Father Diabetes mellitus [email or web address] Not available 2023 12:11:16 Father Essential hypertension [email or web address] Not available 0 12/18/2024 17:37:16 Father Pulmonary embolism [email or web address] Not available 04/0 09/2024 17:37:16 Brother Diabetes mellitus [email or web address] Not available 2023 12:11:16 Brother Asthma [email or web address] Not available 0 12/02/2023 12:11:23 Paternal Grandfather Malignant tumor of lung [email or web address] Not available 2023 12:12:29 Medical History Condition Response Allergies (Food, seasonal, environmental ) N Other N Breast Cancer N Drug/Latex Allergies/Reactions N Blood Transfusion N Dermatologic Disorders N Lung Disease N Defects or Inherited Disease N Breast Problem N Gestational Diabetes N Hematologic disorders N Anesthesia Complications N History of STI N Deep Vein Thrombosis N Polycystic ovary syndrome N Anxiety Disorder N Autoimmune disease N Arthritis N Infertility N Polyps N Acid Reflux (GERD) N History of abnormal pap N Cancer N Stroke N Varicosities N Neurologic/Epilepsy N Endometriosis N High Cholesterol N Headaches N Fibromyalgia N Kidney Disease N Heart Problems N Kidney or Bladder Problems N Thyroid Problems N GI Problems N Eating Disorder N Anemia N Art (IVF or FET) N Psychiatric Illness N Ovarian Cancer N Diabetes N Pulmonary (TB, Asthma) N Hepatitis/Liver Disease N No Past Medical History N Eczema N Urinary Tract Infection N Abuse/Domestic Violence N Asthma N Trauma/Violence N Depression/ depression N Heart Disease N Pre-Eclampsia N Hypertension N Osteoporosis N Thrombophilias N Gynecological History Statement/Question Response Abnormal Pap N Flow Moderate Date of LMP 12/15/2024 On BCP's at Conception? N N Was last menstrual period normal Y STIs/STDs N HPV Vaccine N Current Control Method None Are cycles usually normal Y Frequency of Cycle (Q days) 34 Sexually Active? Y Age of first menstrual cycle 13 Date of Last Pap Smear Sexual Problems? Y Desired Control Method None LMP Definite Obstetrics History GPAL:G 0 P 0 0 0 0 Past Encounters Encounter ID Performer Location Encounter Start Date Encounter Closed Date Diagnosis/Indication Diagnosis SNOMED-CT Code Diagnosis ICD10 Code Diagnosis Note [id number] JOHN Luke [place] [address] [address] 12/02/2023 11:37:34 12/02/2023 14:38:41 Urinary symptoms 726508830 R39.9 Vaginitis 37677905 N76.0 vaginitis/ STI testing sentUA/cx sentvulvar care guidelines discusseds afe sexual practices discussedr x sent for UTI and yeast - r/b/a reviewed Venereal d isease screening 460162917 Z11.3 Contracept ion care management 547369888 Z30.9 all BC methods discussed - r/b/a reviewedce nter for young womens health handout givenshe is going to consider her options and notify the office with what she decides Time spent in visit is a total of 30 mins with at least 50% of visit consisting of counseling and review of plan of care. [id number] JOHN Luke [place] [address],[place] [address] 12/17/2024 15:48:18 12/17/2024 16:55:06 Dyspareunia 30470456 N94.10 UPT (-)vaginit is/STI panel sentwe agreed to [facility] for further evaluation will update pt with results when available and discuss next steps / recommenda tions Time spent in visit is a total of 20 mins with at least 50% of visit consisting of counseling and review of plan of care. Vaginal odor 945832777 N 89.8 Venereal d isease screening 683695347 Z11.3 [id number] Deneen Sneha [place] [address],[place] [address] 12/18/2024 17:37:10 12/19/2024 08:45:14 Dyspareunia 46763204 N94.10 N92.6 Health Concerns Section Related Observation LastModified by Organization Detai ls LastModified Time None Recorded Concern Status LastModified by Organization Details LastModified Time None Recorded Advance Directives Directive None Recorded Payers Encounter Date Sequence Insurance Name Policy Number Policy Villafuerte Covered Member ID Villafuerte Member ID Guarantor Name 12/02/2023 1 [place] [facility] Melanie Bajwa [id number] Melanie Bajwa 12/17/2024 1 [facility] - DOS ON OR AFTER 21 (MEDICAID REPLACEMENT - HMO) 2EDERRELL Bajwa [id number] Melanie Bajwa 12/18/2024 1 [facility] - DOS ON OR AFTER 21 (MEDICAID REPLACEMENT - HMO) 2EDERRELL Bajwa [id number] Melanie Bajwa Notes Date Note Type Note Provider Name and Address Organization Details Recorded Time 4 text/html 18yo [id number] for urinary/vaginal symptoms and to discuss BC optionsurinary burning/frequency x 1 weekvaginal discharge/itching x 1 weekneg flank painsneg n/v/fneg flu-like symptomsNot currently SA but has been in the past denies h/o DVT/PE, HTN, Stroke/HI, cancer, liver disease, or migraine with aura JOHN Luke [address], [place], [address], [facility] 12/02/2023 13:23:48 5 text/html 19yo [id number] for evaluation of dyspareuniasymptoms started 3 weeks agolower pelvic pain with some acts of IC, resolves shortly afterSA with current partner x 5 months, uses condoms for BC, no issues with dyspareunia prior to 3 weeks agovaginal odor at times neg n/v/fneg dischargeneg flu-like symptomsneg urinary symptomsbowel movements wnl JOHN Luke [address], [place], [address], [facility] 12/17/2024 16:54:27 OBGyn Episode No OBEpisode recorded.
--- NOTE | 2024-12-31 21:55 | ECG_ITS ---
Test Date: 2024-12-31 22:01:31 Measurements Intervals [place] Rate: 101 P: 144 HI: 124 QRS: 127 QRSD: 85 T: 89 QT: 330 QTc: 429 Interpretive Statements SINUS TACHYCARDIA ARM LEADS REVERSED CONSIDER RIGHT VENTRICULAR CONDUCTION DELAY BORDERLINE ST-T WAVE ABNORMALITY- ANTERIOR LEADS BASELINE ARTIFACT- I, III, AVR, AVL, AVF, V1-V5 BORDERLINE ECG No previous ECG available for comparison Electronically Signed On 01-01-2025 06:19:28 CDT by Salinas Willard D.O.
[2024-12-31 22:01] VITALS: BP 114/71; PULSE 93; RESP 18; TEMP 36.9; O2SAT 99
--- NOTE | 2025-01-01 00:10 | ED_ITS ---
HPI - Anxiety General Chief Complaint: Anxiety Stated Complaint: possible panic attack? Time Seen by Provider: 12/31/24 23:38 Source: patient Mode of arrival: EMS Limitations: no limitations History of Present Illness HPI narrative: This is a 19-year-old female who presents to the ED via EMS for chief complaint of panic attack this started earlier today. Patient states that she became very anxious, had back pain then had episode of nausea and vomiting. States that she vomited bright red blood. Patient states that this all started while having a conversation with boyfriend about of break up. Patient states that she started to have chest pain on the way into the ER. Related Data Allergies Allergy/AdvReac Type Severity Reaction Status Date / Time No Known Allergies Allergy Verified 12/31/24 22:01 Review of Systems 2 Review of Systems: All systems as dictated in HPI [facility] Past Medical History Medical History (Updated 01/01/25 @ 01:46 by Blade Adkins PA-C) No pertinent past medical history Surgical History Surgical History (Updated 09/27/24 @ 09:00 by Lenore Roger CMA) History of laparoscopic appendectomy 09/20/[address] Pearson No pertinent past surgical history Social History Social History (Updated 09/27/24 @ 08:40 by Lara Tijerina MA) Smoking status: Never smoker Alcohol intake: never Substance use: never Do You Feel Safe in your Home?: Yes Lack of Transportation: No Lack of Food: Never True Current Housing: I Have Housing Concerned About Future Housing: No Difficulty Paying Gas/Electric Bills: No Difficulty Paying for Meds: No Currently Unemployed: YES Education: High School Diploma/GED Difficulty w/ Childcare or Family Care: No Exam 2 Narrative: GENERAL: Appears very anxious. Standing up and hyperventilating. HEAD: Normocephalic, atraumatic. EYES: PERRLA and EOMI. ENT: No evidence of active or dried blood in the posterior pharynx. Nares clear, no rhinorrhea or epistaxis. Mucous membranes moist. Oropharynx without tonsillar hypertrophy exudate or other lesions. NECK: Supple. No adenopathy or masses. CHEST: No respiratory distress. Clear to auscultation. No wheezes rales or rhonchi HEART: Regular rate and rhythm. No murmur heard. Normal peripheral pulses. ABDOMEN: Soft, nontender, nondistended, normal active bowel sounds. MSK: Normal range of motion. No edema. SKIN: Warm, dry, no rash. NEURO: Alert and oriented x4. No focal deficits. PSYCH: Seizures noted. Appropriate affect. No SI or HI Course Vital Signs Vital signs: Vital Signs Temperature 98.4 F 12/31/24 22:01 Pulse Rate 93 12/31/24 22:01 Respiratory Rate 18 12/31/24 22:01 Blood Pressure 114/71 12/31/24 22:01 Pulse Oximetry 99 12/31/24 22:01 Oxygen Delivery Room Air 12/31/24 22:01 Temperature 98.4 F 12/31/24 22:01 Pulse Rate 93 12/31/24 22:01 Respiratory Rate 18 12/31/24 22:01 Blood Pressure 114/71 12/31/24 22:01 Pulse Oximetry 99 12/31/24 22:01 Oxygen Delivery Room Air 12/31/24 22:01 MDM - Anxiety MDM Narrative Medical decision making narrative: This is a 19-year-old female who presents to the ED for panic attack. Vitals are normal. Exam remarkable for the above. EKG shows sinus rhythm with no acute ischemic findings. Lab work is unremarkable. Chest x-ray is negative. Patient was given 0.5 mg Ativan with complete resolution of her symptoms. She will be given Rx for hydroxyzine for anxiety as needed. Patient will be discharged in stable condition. Supportive measures discussed and return precautions given. Patient is understanding and agreeable with plan for discharge with PCP follow-up. Lab Data 01/01/25 00:21 01/01/25 00:21 Labs: Lab Results 01/01/25 Range/Units 00:21 WBC 8.5 (4.5-10.0) K/mm3 RBC 4.50 (4.2-5.4) M/mm3 Hgb 12.2 (12.0-15.0) g/dL Hct 37.6 (37.0-47.0) % MCV 83.6 (80-100) fl MCH 27.1 (26-34) pg MCHC 32.4 (32-36) g/dl RDW 13.6 (11.5-14.5) % Plt Count 243 (150-375) k/mm3 MPV 12.8 H (7.4-10.4) fl Immature Gran % (Auto) 1.4 H (0-0.5) % Neut % (Auto) 73.8 H (45.5-73.1) % Lymph % (Auto) 17.9 L (18.3-44.2) % Hinds % (Auto) 5.5 (2.6-8.5) % Eos % (Auto) 0.7 (0-4.4) % Baso % (Auto) 0.7 (0.2-1.2) % Lymph # (Auto) 1.52 (0.9-3.2) K/mm3 Hinds # (Auto) 0.5 (0.1-0.6) K/mm3 Eos # (Auto) 0.1 (0-0.3) K/mm3 Baso # (Auto) 0.1 (0.0-0.1) K/mm3 Abs Immat Gran (auto) 0.12 H (0.00-0.031) K/mm3 Absolute Neuts (auto) 6.3 (1.3-6.7) K/mm3 Absolute Nucleated RBC 0.000 (0.0-0.012) K/mm3 Nucleated RBC % 0.0 (0.0-0.2) % Sodium 139 (137-145) mmol/L Potassium 4.0 (3.4-5.0) mmol/L Chloride 108 H (98-107) mmol/L Carbon Dioxide 16 L (22-30) mmol/L Anion Gap 15 H (4-12) mmol/L BUN 15 (7-17) mg/dL Creatinine 0.73 (0.7-1.0) mg/dL Estim Creat Clear Calc 89 ml/min Estimated GFR > 60 (59 - ) Glucose 105 (65-110) mg/dL Calcium 9.5 (8.4-10.2) mg/dL Total Bilirubin 0.4 (0.2-1.3) mg/dL AST 24 (14-36) U/L ALT 14 (6-35) U/L Alkaline Phosphatase 74 (38-126) U/L Total Protein 8.0 (6.3-8.2) g/dL Albumin 4.9 (3.5-5.1) g/dL Discharge Plan Discharge Clinical Impression: Acute anxiety, Panic disorder Patient Disposition: Home Condition: Stable Instructions: Antibiotic Form, Anxiety (ED) Additional Instructions: Exam and imaging today are reassuring overall. Please follow-up with your PCP regarding panic attacks. Take hydroxyzine as needed for acute anxiety. If you have any new or worsening symptoms please return to the ER for further evaluation. Patient Language: Cymro Prescriptions: New hydroxyzine HCl 25 mg tablet 25 mg PO TID PRN (Reason: anxiety) Qty: 30 0RF Follow-up/Referrals: UNKNOWN,DOCTOR [Primary Care Provider] - Time of Disposition: 01:47
[2025-01-01] MEDS: LORazepam INJ (*CRX) 2 MG/ML VIAL 0.5 MG IM (00:17)
[2025-01-01 00:39] LABS: Alanine Aminotransferase 14 U/L (6-35); Albumin Level 4.9 g/dL (3.5-5.1); Alkaline Phosphatase 74 U/L (38-126); Anion Gap 15 mmol/L (4-12); Aspartate Amino Transferase 24 U/L (14-36); Bilirubin,Total 0.4 mg/dL (0.2-1.3); Blood Urea Nitrogen 15 mg/dL (7-17); Calcium 9.5 mg/dL (8.4-10.2); Carbon Dioxide 16 mmol/L (22-30); Chloride 108 mmol/L (98-107); Estimated CRCL calculation 89 ml/min; Estimated Glomerular Filt Rate > 60; Glucose 105 mg/dL (65-110); Sodium 139 mmol/L (137-145)
[2025-01-01 00:42] LABS: Basophils Absolute Auto 0.1 K/mm3 (0.0-0.1); Basophils Percent Auto 0.7 % (0.2-1.2); Eosinophils Absolute Auto 0.1 K/mm3 (0-0.3); Eosinophils Percent Auto 0.7 % (0-4.4); Hematocrit 37.6 % (37.0-47.0); Hemoglobin 12.2 g/dL (12.0-15.0); Immature Granulocyte Absolute 0.12 K/mm3 (0.00-0.031); Immature Granulocyte Percent A 1.4 % (0-0.5); Lymphocytes Absolute Auto 1.52 K/mm3 (0.9-3.2); Lymphocytes Percent Auto 17.9 % (18.3-44.2); Mean Corpuscular HGB Conc 32.4 g/dl (32-36); Mean Corpuscular Hemoglobin 27.1 pg (26-34); Mean Corpuscular Volume 83.6 fl (80-100); Mean Platelet Volume 12.8 fl (7.4-10.4); Monocytes Absolute Auto 0.5 K/mm3 (0.1-0.6); Monocytes Percent Auto 5.5 % (2.6-8.5); Neutrophils Absolute Auto 6.3 K/mm3 (1.3-6.7); Neutrophils Percent Auto 73.8 % (45.5-73.1); Platelet Count Result 243 k/mm3 (150-375); Red Cell Distribution Width 13.6 % (11.5-14.5); White Blood Count 8.5 K/mm3 (4.5-10.0)
== END 2025-01-01 02:17 | disposition home or self-care (01) ==
PROVIDERS: Emergency Provider Physician Assistant
DX: F41.0 Panic disorder [episodic paroxysmal anxiety] (principal); R00.0 Tachycardia, unspecified; R94.31 Abnormal electrocardiogram [ECG] [EKG]
CPT/HCPCS: 36415; 71045; 80053; 85025; 93005; 96372; 99283; J2060

== ENCOUNTER 2025-01-10 08:43 | Emergency (ER) | payer OTHER, SELFPAY ==
[2025-01-10 09:10] VITALS: BP 99/70; PULSE 68; RESP 16; TEMP 36.8; O2SAT 99
--- NOTE | 2025-01-10 09:57 | ED_ITS ---
HPI - General Adult General Chief complaint: Unspecified Stated complaint: HEMORRHOID Source: patient Mode of arrival: ambulatory Limitations: no limitations History of Present Illness HPI narrative: 19 y/o female presented for c/o painful hemorrhoid worsening x2 days. Has not tried any otc meds or supportive measures for treatment. Denies history of hemorrhoids. Denies constipation or bleeding. Related Data Allergies Allergy/AdvReac Type Severity Reaction Status Date / Time No Known Allergies Allergy Verified 01/10/25 09:09 Review of Systems Review of Systems: per HPI. FOR[facility]LY [facility], [facility] Past Medical History Medical History (Updated 01/10/25 @ 10:02 by Alina Cortez, APPLICATION SOFTWARE ENGINEER) No pertinent past medical history Surgical History Surgical History (Updated 09/27/24 @ 09:00 by Lenore Roger [facility]) History of laparoscopic appendectomy 09/20/[address] Pearson No pertinent past surgical history Social History Social History (Updated 09/27/24 @ 08:40 by Lara Tijerina MA) Smoking status: Never smoker Alcohol intake: never Substance use: never Substance use type: does not use Do You Feel Safe in your Home?: Yes Lack of Transportation: No Lack of Food: Never True Current Housing: I Have Housing Concerned About Future Housing: No Difficulty Paying Gas/Electric Bills: No Difficulty Paying for Meds: No Currently Unemployed: YES Education: High School Diploma/GED Difficulty w/ Childcare or Family Care: No Comments At time of signature, I have reviewed and agree with nursing past medical, surgical, social and family history unless otherwise noted. Please see nursing chart for further information. There is no relevant family history pertinent to the presenting complaint Exam Narrative: GENERAL: Well-appearing ENT: Mucous membranes moist. CHEST: Clear to auscultation. HEART: Regular rate and rhythm. ABD: soft, flat nontender; Rectal area with approx 1cm diameter thrombosed tender hemorrhoid, no active bleeding SKIN: Warm, dry. NEURO: Alert and oriented x3. Course Course Emergency Course: Patient is aware of diagnosis, understands and agrees to treatment plan. Anticipatory guidance given. Patient agrees to follow-up as directed and is aware of reasons to seek care at the emergency department. Portions of this record may have been created with voice recognition software Level of Care: Express Care Visit Vital Signs Vital signs: Vital Signs Temperature 98.3 F 01/10/25 09:10 Pulse Rate 68 01/10/25 09:10 Respiratory Rate 16 01/10/25 09:10 Blood Pressure 99/70 L 01/10/25 09:10 Pulse Oximetry 99 01/10/25 09:10 Temperature 98.3 F 01/10/25 09:10 Pulse Rate 68 01/10/25 09:10 Respiratory Rate 16 01/10/25 09:10 Blood Pressure 99/70 L 01/10/25 09:10 Pulse Oximetry 99 01/10/25 09:10 Reviewed Transfer Transfered to: [facility] Transportation: Other (private vehicle) Transfer rationale: Pt transferred to [facility] via private vehicle. Aware of the risk of transfer. Pt is advised to go directly to the ER and remain NPO. Report called to Bell Wallace, accepting physician. Medical Decision Making MDM Narrative Medical decision making narrative: Pt with thrombosed hemorrhoid, advised ER transfer Differential Diagnosis Differential Diagnosis: hemorrhoid, constipation, anal fissure, colon polyp Vital Signs Vital Signs: Vital Signs Temperature 98.3 F 01/10/25 09:10 Pulse Rate 68 01/10/25 09:10 Respiratory Rate 16 01/10/25 09:10 Blood Pressure 99/70 L 01/10/25 09:10 Pulse Oximetry 99 01/10/25 09:10 Temperature 98.3 F 01/10/25 09:10 Pulse Rate 68 01/10/25 09:10 Respiratory Rate 16 01/10/25 09:10 Blood Pressure 99/70 L 01/10/25 09:10 Pulse Oximetry 99 01/10/25 09:10 Discharge Plan Discharge Clinical Impression: Hemorrhoid Patient Disposition: Acute Care Hospital Condition: Stable Patient Language: Italian Prescriptions: No Action hydroxyzine HCl 25 mg tablet 25 mg PO TID PRN (Reason: anxiety) Qty: 30 0RF Follow-up/Referrals: PHYSICIAN,TOWEL INSPECTOR [Primary Care Provider] - Time of Disposition: 10:05
== END 2025-01-10 10:10 | disposition short-term general hospital (02) ==
PROVIDERS: Emergency Provider Nurse Practitioner Family
DX: K64.5 Perianal venous thrombosis (principal)
CPT/HCPCS: 99212; G0463

== ENCOUNTER 2025-01-10 17:55 | Emergency (ER) | payer OTHER, SELFPAY ==
--- OUTSIDE RECORDS SUMMARY | 2025-01-10 18:05 | XMS_ITS | Data Portability ---
Author Organization [facility] [place] Address [address] [place] [address] [place] [address] Assessment No assessment recorded. Plan of Treatment Reminders Order Date Submit Date Provider Last Modified By Organization Details Last Modified Time Details Appointments None recorded. Lab test, urine 2024 025 [email or web address] [place], [address], [place], [address], 16:53:54 unlisted lab - women's health swab plus, ANGÉLICA 2024 025 [facility] (Lab), [address], [place], [address], 15:18:05 Referral None recorded. Procedures None recorded. Surgeries None recorded. Imaging US, pelvis 2024 025 [email or web address] [place], [address], [address], [place], [address], 22:08:38 US, transvagina l 2024 025 [facility], [address], [place], [address], 5 18:30:04 US, pelvis, complete 2024 025 [facility], [address], [place], [address], 5 04:02:31 Medication Orders Macrobid 100 mg capsule 2023 024 [id number], [address], [place], [address], 5 16:03:05 fluconazole 150 mg tablet 2023 024 [id number], [address], [place], [address], 5 16:03:05 Patient TargetsNo targets recorded. Patient InstructionsNo instructions recorded. Reason for Referral None Reported. Results Created Date Observation Date Name Description Value Unit Range Abnormal Flag Note LastModifiedBy Organization Detail LastModifiedTime 12/02/19 24 12/02/2023 CT/GC AND TRICH OMONA S VAGIN RADHA (RRNA ), SWAB chlamydia trachomatis, PCR Negati ve negati ve Not Available [facility] (Lab) [address], [place], [address], 12/05/2023 10:33:52 12/02/19 24 12/02/2023 CT/GC AND TRICH OMONA S VAGIN RADHA (RRNA ), SWAB neisseria gonorrhoeae, PCR Negati ve negati ve Not Available [facility] (Lab) [address], [place], [address], 12/05/2023 10:33:52 12/02/19 24 12/02/2023 CT/GC AND TRICH OMONA S VAGIN RADHA (RRNA ), SWAB trichomonas vaginalis ribosomal RNA (rrna) Negati ve negati ve Not Available [facility] (Lab) [address] [place], [address], 12/05/2023 10:33:52 12/02/19 24 12/02/2023 VAGIN ITIS/ VAGIN OSIS, DNA PROBE nay sp. detection, direct probe Positi ve negati ve abnormal Not Available [facility] (Lab) [address], [place], [address], 12/05/2023 10:33:52 12/02/19 24 12/02/2023 VAGIN ITIS/ VAGIN OSIS, DNA PROBE gardnerella vag. detection, direct probe Negati ve negati ve Not Available [facility] (Lab) [address] [place], [address], 12/05/2023 10:33:52 12/02/19 24 12/02/2023 VAGIN ITIS/ VAGIN OSIS, DNA PROBE trichomonas vag. detection, direct probe Negati ve negati ve Not Available [facility] (Lab) [address], [place], [address], 12/05/2023 10:33:52 12/18/19 25 12/17/2024 WOMEN 'S HEALT H SWAB PLUS, ANGÉLICA bacterial vaginosis (bv), tma Positi ve negati ve abnormal Not Available [facility] (Lab) [address], [place], [address], 12/18/2024 15:18:05 12/18/19 25 12/17/2024 WOMEN 'S HEALT H SWAB PLUS, ANGÉLICA nay species, tma Negati ve negati ve Not Available [facility] (Lab) [address] [place], [address], 12/18/2024 15:18:05 12/18/19 25 12/17/2024 WOMEN 'S HEALT H SWAB PLUS, ANGÉLICA nay glabrata, tma Negati ve negati ve Not Available [facility] (Lab) [address] [place], [address], 12/18/2024 15:18:05 12/18/19 25 12/17/2024 WOMEN 'S HEALT H SWAB PLUS, ANGÉLICA trichomonas vaginalis, tma Negati ve negati ve Not Available [facility] (Lab) [address] [place], [address], 12/18/2024 15:18:05 12/18/19 25 12/17/2024 WOMEN 'S HEALT H SWAB PLUS, ANGÉLICA chlamydia trachomatis, PCR Negati ve negati ve Not Available [facility] (Lab) [address], [place], [address], 12/18/2024 15:18:05 12/18/19 25 12/17/2024 WOMEN 'S [...] ded in this panel . Not Available [facility] (Lab) [address], [place], [address], 12/18/2024 15:18:05 12/18/1912/17/2024 pregn laura test, urine HCG negati ve Not Available [place] [address], [place], [address], 12/17/2024 16:53:48 12/19/19 25 12/19/2024 US, gavi nam No observ ation record ed. [email or web address] [place] [address], [place], [address], 12/19/2024 18:29:54 12/19/19 25 12/19/2024 US, trans vagin al No observ ation record ed. [email or web address] [place] [address], [place], [address], 12/19/2024 18:30:04 12/19/19 25 12/18/2024 US, pelvi s No observ ation record ed. GIGI Jaja [address], [place], [address], 12/31/2024 18:49:14 Result Notes None recorded. Procedures Surgical History None recorded. Imaging Results Imaging Date Name Status LastModified by Organization Details LastModified Time 12/19/2024 US, pelvis completed [email or web address] [place] [address], [place], [address], 12/19/2024 18:29:54 12/19/2024 US, transvaginal completed [email or web address] [address], [place], [address], 12/19/2024 18:30:04 12/18/2024 US, pelvis completed GIGI Jaja [address], [place], [address], 12/31/2024 18:49:14 Procedure Notes None recorded. Medical [...] Not Available Not Available No t Available hydroxyzine HCl 25 mg tablet TAKE 1 TABLET BY MOUTH THREE TIMES A DAY NEEDED FOR ANXIETY active Not Available Not Available No t [...] mass index (BMI) Body mass index (BMI) [Percentile] Per age and sex Body weight Systolic blood pressure Diastolic blood pressure Provider Name and Address Organization Details Last Updated DateTime 4 170.18 cm 18.7 kg/m2 13 % 87999.9 3 g 122 mm[Hg] 77 mm[Hg] Claudine Trivedi [facility] 4 12:01:33 Date Recorded Body height Body mass index (BMI) Body mass index (BMI) [Percentile] Per age and sex Body weight Systolic blood pressure Diastolic blood pressure Provider Name and Address Organization Details Last Updated DateTime 5 170.18 cm 17.9 kg/m2 5 % 25580.5 3 g 114 mm[Hg] 80 mm[Hg] Alison Borges [facility] 5 16:08:27 Social History Question Answer Notes LastModified by Organizat ion Details LastModified Time In The 14 [...] 17:37:16 Father Pulmonary embolism [email or web address] Not available 09/2024 17:37:16 Brother Diabetes mellitus [email or web address] Not available 2023 12:11:16 Brother Asthma [email or web address] Not available 0 12/02/2023 12:11:23 Paternal Grandfather Malignant tumor of lung dswayne Not available 2023 12:12:29 Medical History Condition Response Other N Blood Transfusion N Dermatologic Disorders N Gestational Diabetes N Anxiety Disorder N Autoimmune disease N Arthritis N Polyps N Infertility N Acid Reflux (GERD) N Cancer N Varicosities N Stroke N Neurologic/Epilepsy N Fibromyalgia N Headaches N Kidney Disease N Heart Problems N Kidney or Bladder Problems N Eating Disorder N Art (IVF or FET) N Hepatitis/Liver Disease N No Past Medical History N Urinary Tract Infection N Asthma N Trauma/Violence N Thrombophilias N Allergies (Food, seasonal, environmental ) N Breast Cancer N Drug/Latex Allergies/Reactions N Lung Disease N Defects or Inherited Disease N Breast Problem N Hematologic disorders N Anesthesia Complications N History of STI N Deep Vein Thrombosis N Polycystic ovary syndrome N History of abnormal pap N Endometriosis N High Cholesterol N Thyroid Problems N GI Problems N Anemia N Psychiatric Illness N Ovarian Cancer N Diabetes N Pulmonary (TB, Asthma) N Eczema N Abuse/Domestic Violence N Depression/ depression N Heart Disease N Pre-Eclampsia N Hypertension N Osteoporosis N Gynecological History Statement/Question Response Abnormal Pap [...] SNOMED-CT Code Diagnosis ICD10 Code Diagnosis Note [id number] Candace PhillipsJOHN [place] [address],[place] [address] 12/02/2023 11:37:34 12/02/2023 14:38:41 Urinary symptoms 627772510 R39.9 Vaginitis 38271398 N76.0 vaginitis/ STI testing sentUA/cx sentvulvar care guidelines discusseds afe sexual practices discussedr x sent for UTI and yeast - r/b/a reviewed Venereal d isease screening 723956850 Z11.3 Contracept ion care management 148825281 Z30.9 all BC methods discussed - r/b/a reviewedce [facility] womens health handout givenshe is going to consider her options and notify the office with what she decides Time spent in visit is a total of 30 mins with at least 50% of visit consisting of counseling and review of plan of care. [id number] Candace Phillips [facility] [address],[place] [address] 12/17/2024 15:48:18 12/17/2024 16:55:06 Dyspareunia [id number] N94.10 UPT (-)vaginit is/STI panel sentwe agreed to TVUS for further evaluation will update pt with results when available and discuss next steps / recommenda tions Time spent in visit is a total of 20 mins with at least 50% of visit consisting of counseling and review of plan of care. Vaginal odor [id number] N 89.8 Venereal d isease screening [id number] Z11.3 [id number] [facility] [address],[place] [address] 12/18/2024 17:37:10 12/19/2024 08:45:14 Dyspareunia 01762225 N94.10 N92.6 Health Concerns Section Related Observation LastModified by Organization Detai ls LastModified Time None Recorded Concern Status LastModified by Organization Details LastModified Time None Recorded Advance Directives Directive None Recorded Payers Encounter Date Sequence Insurance Name Policy Number Policy Villafuerte Covered Member ID Villafuerte Member ID Guarantor Name 12/02/2023 1 [place] [facility] Melanie Bajwa [id number] Melanie Bajwa 12/17/2024 1 [facility] - DOS ON OR AFTER 21 (MEDICAID REPLACEMENT - HMO) [id number] Melanie Bajwa [id number] Melanie Bajwa 12/18/2024 1 [facility] - DOS ON OR AFTER 21 (MEDICAID REPLACEMENT - HMO) 2EHA Melanie Bajwa [id number] Melanie Bajwa Notes Date Note Type Note Provider Name and Address Organization Details Recorded Time 4 text/html 18yo [id number] for urinary/vaginal symptoms and to discuss BC optionsurinary burning/frequency x 1 weekvaginal discharge/itching x 1 weekneg flank painsneg n/v/fneg flu-like symptomsNot currently SA but has been in the past denies h/o DVT/PE, HTN, Stroke/AR, cancer, liver disease, or migraine with aura JOHN Luke [address], [place], [address], [facility] 12/02/2023 13:23:48 5 text/html 19yo [id number] for evaluation of dyspareuniasymptoms started 3 weeks agolower pelvic pain with some acts of IC, resolves shortly afterSA with current partner x 5 months, uses condoms for BC, no issues with dyspareunia prior to 3 weeks agovaginal odor at times neg n/v/fneg dischargeneg flu-like symptomsneg urinary symptomsbowel movements wnl JOHN Luke [address], [place], [address], [facility] 12/17/2024 16:54:27 OBGyn Episode No OBEpisode recorded.
[2025-01-10 18:06] VITALS: BP 109/79; PULSE 115; RESP 16; TEMP 37.1; O2SAT 99
--- NOTE | 2025-01-10 18:58 | ED_ITS ---
HPI - General Adult General Chief complaint: Unspecified Stated complaint: Hemorrhoid pain Time Seen by Provider: 01/10/25 18:22 History of Present Illness HPI narrative: 19-year-old female presents to the emergency department for a hemorrhoid for the past couple of days. States she noticed a lump to her anus a couple days ago which is painful. Went to urgent care and was sent to the ED for excision. Denies bleeding or blood in her stools, abdominal pain, fever, mucus drainage, fever. Has not tried anything [id number]. Related Data Allergies Allergy/AdvReac Type Severity Reaction Status Date / Time No Known Allergies Allergy Verified 01/10/25 18:09 Review of Systems Review of Systems: All systems reviewed & are unremarkable except as noted in HPI and below PMFSH Past Medical History Medical History No pertinent past medical history Surgical History Surgical History History of laparoscopic appendectomy 09/20/[address] Pearson No pertinent past surgical history Social History Social History Smoking status: Never smoker Alcohol intake: never Substance use: never Substance use type: does not use Do You Feel Safe in your Home?: Yes Lack of Transportation: No Lack of Food: Never True Current Housing: I Have Housing Concerned About Future Housing: No Difficulty Paying Gas/Electric Bills: No Difficulty Paying for Meds: No Currently Unemployed: YES Education: High School Diploma/GED Difficulty w/ Childcare or Family Care: No Exam Narrative: GENERAL: Well-appearing, well-nourished, and in no acute distress. HEAD: Normocephalic, atraumatic. EYES: EOMI ENT: Nares clear, no rhinorrhea or epistaxis. Mucous membranes moist. NECK: Supple. CHEST: Clear to auscultation. No respiratory distress. HEART: Regular rate and rhythm. No murmur heard. Normal peripheral pulses. ABDOMEN: Soft, nontender, nondistended, normal active bowel sounds. Rectal exam chaperoned by GABRIEL Blount: external hemorrhoid, partially thrombosed with mild TTP. No bleeding, no melena EXTREMITIES: Normal range of motion. No edema. SKIN: Warm, dry, no rash. NEURO: No focal deficits. Alert and oriented x3 Course Vital Signs Vital signs: Vital Signs Temperature 98.7 F 01/10/25 18:06 Pulse Rate 115 H 01/10/25 18:06 Respiratory Rate 16 01/10/25 18:06 Blood Pressure 109/79 01/10/25 18:06 Pulse Oximetry 99 01/10/25 18:06 Oxygen Delivery Room Air 01/10/25 18:06 Temperature 98.7 F 01/10/25 18:06 Pulse Rate 115 H 01/10/25 18:06 Respiratory Rate 16 01/10/25 18:06 Blood Pressure 109/79 01/10/25 18:06 Pulse Oximetry 99 01/10/25 18:06 Oxygen Delivery Room Air 01/10/25 18:06 Medical Decision Making MDM Narrative Medical decision making narrative: 19-year-old female presents emergency department for a hemorrhoid for the past couple of days. Patient states the area is TTP. Went to urgent care and was advised to come the ED for excision. Triage vitals with tachycardia 115, patient does appear anxious appearing. She is afebrile nontoxic appearing. Exam is significant for external hemorrhoid that was partially thrombosed mildly tender to palpation. No active bleeding. Abdomen is soft and nontender. Shared decision making regarding excision versus supportive treatment and follow-up with general surgery. Patient would like excision of thrombosed hemorrhoid today. Excision performed without acute complications. Patient was advised to do several Sitz baths today. Stool softeners and preparation H sent to pharmacy. Referral for General surgery provided. Strict ED return precautions discussed. She is agreeable with the plan verbalized understanding. Discharged in stable condition. Vital Signs Vital Signs: Vital Signs Temperature 98.7 F 01/10/25 18:06 Pulse Rate 115 H 01/10/25 18:06 Respiratory Rate 16 01/10/25 18:06 Blood Pressure 109/79 01/10/25 18:06 Pulse Oximetry 99 01/10/25 18:06 Oxygen Delivery Room Air 01/10/25 18:06 Temperature 98.7 F 01/10/25 18:06 Pulse Rate 115 H 01/10/25 18:06 Respiratory Rate 16 01/10/25 18:06 Blood Pressure 109/79 01/10/25 18:06 Pulse Oximetry 99 01/10/25 18:06 Oxygen Delivery Room Air 01/10/25 18:06 Discharge Plan Discharge Clinical Impression: Hemorrhoid Qualifiers: Hemorrhoid type: unspecified Qualified Code(s): K64.9 - Unspecified hemorrhoids Patient Disposition: Home Condition: Stable Instructions: Antibiotic Form, Hemorrhoids (DC) Additional Instructions: You were evaluated in the emergency department for a hemorrhoid. Part of the hemorrhoid was thrombosed and the clot was removed. Please use the Premarin cream as directed, stool softeners and Sitz baths as discussed. Follow up with a general surgeon. Return to the emergency department if you develop fever, increasing pain, any new or worsening symptoms. Patient Language: Omani Prescriptions: New docusate sodium 100 mg capsule 100 mg PO BID Qty: 60 0RF Preparation H 0.25-14-74.9 % ointment 1 applic RECTAL QAM AND QHS Qty: 28 0RF No Action hydroxyzine HCl 25 mg tablet 25 mg PO TID PRN (Reason: anxiety) Qty: 30 0RF Follow-up/Referrals: Ibis Novoa MD [Physician] - PHYSICIAN,PERMIT SPECIALIST [Primary Care Provider] -
[2025-01-10 20:11] VITALS: BP 113/72; PULSE 92; RESP 17; O2SAT 100
[2025-01-10 20:14] VITALS: BP 113/72; PULSE 92; RESP 17; TEMP 36.7; O2SAT 100
== END 2025-01-10 20:17 | disposition home or self-care (01) ==
PROVIDERS: Emergency Provider Physician Assistant
DX: K64.5 Perianal venous thrombosis (principal)
CPT/HCPCS: 46320; 99283

== ENCOUNTER 2025-01-30 13:30 | Emergency (ER) | payer OTHER, SELFPAY ==
--- NOTE | ~2025-01-30 | CT_ITS ---
CT abdomen pelvis w con Ordering provider: Jeff Wills MD History: 19 years Female with . Abdominal pain . Comparison: September 20, 2024 Technique: CT abdomen and pelvis with IV and without oral contrast. Automated exposure control and it erative reconstruction technique were employed. The dose-length product was 199.92 mGy-cm. 100 mL Omn ipaque 350 was given IV. Findings: VISUALIZED LOWER CHEST: Normal. UPPER ABDOMINAL ORGANS: Liver: Normal. Focal area of fat infiltration seen near to the interlobar fissure. Gallbladder: Slightly contracted with no stones. Spleen: Normal. Stomach/duodenum: Normal. Pancreas: Normal. Adrenals: Normal. Kidneys: Normal. PELVIC ORGANS: The bladder is normal. BOWEL AND MESENTERY: Colon: No evidence of diverticulitis. Fecal material is loaded in the colon. The appendix is not demo nstrated. Small Bowel: Normal. No obstruction. Peritoneum/mesentery: No free air or free fluid. No mesenteric lymphadenopathy. RETROPERITONEUM: Normal aorta. No retroperitoneal lymphadenopathy. MUSCULOSKELETAL: Superficial soft tissues: The superficial soft tissues are normal. Bones: Normal spine. IMPRESSION: 1. No evidence of appendicitis, diverticulitis or intestinal obstruction. 2. Constipation. Reviewed, dictated and finalized at location A.
[2025-01-30 13:36] VITALS: BP 114/82; PULSE 79; RESP 15; TEMP 36.8; O2SAT 98
[2025-01-30 13:46] LABS: Glucose Point of Care 140 mg/dl (65-105)
[2025-01-30] MEDS: SODIUM CHLORIDE 0.9% IV 1,000 ML 999 ML IV CONT (13:57)
[2025-01-30] MEDS: ONDANSETRON INJ 4 MG/2 ML VIAL IV PUSH (13:57)
--- OUTSIDE RECORDS SUMMARY | 2025-01-30 14:02 | XMS_ITS | Data Portability ---
Author Organization [facility] [place] Address [address] [place] [address] [place] [address] Assessment No assessment recorded. Plan of Treatment Reminders Order Date Submit Date Provider Last Modified By Organization Details Last Modified Time Details Appointments None recorded. Lab test, urine 2024 025 [email or web address] [place], [address], [place], [address], 16:53:54 unlisted lab - women's health swab plus, ANGÉLICA 2024 025 [facility] (Lab), [address] [facility], [place], [address], 15:18:05 Referral None recorded. Procedures None recorded. Surgeries None recorded. Imaging US, pelvis 2024 025 [email or web address] [place], [address], [place], [address], 22:08:38 US, transvagina l 2024 025 [facility], [address], [place], [address], 18:30:04 US, pelvis, complete 2024 025 [email or web address] 1 [place], [address], [place], [address], 5 11:10:39 Medication Orders Macrobid 100 mg capsule 2023 024 [email or web address] [id number] In [facility], [address] [facility], [place], [address], 5 16:03:05 fluconazole 150 mg tablet 2023 024 [email or web address] [id number] In [facility], [address] [facility], [place], [address], 5 16:03:05 Patient TargetsNo targets recorded. Patient InstructionsNo instructions recorded. Reason for Referral None Reported. Results Created Date Observation Date Name Description Value Unit Range Abnormal Flag Note LastModifiedBy Organization Detail LastModifiedTime 12/02/19 24 12/02/2023 CT/GC AND TRICH OMONA S VAGIN RADHA (RRNA ), SWAB chlamydia trachomatis, PCR Negati ve negati ve Not Available [facility] (Lab) [address] [facility], [place], [address], 12/05/2023 10:33:52 12/02/19 24 12/02/2023 CT/GC AND TRICH OMONA S VAGIN RADHA (RRNA ), SWAB neisseria gonorrhoeae, PCR Negati ve negati ve Not Available [facility] (Lab) [address] [facility], [place], [address], 12/05/2023 10:33:52 12/02/19 24 12/02/2023 CT/GC AND TRICH OMONA S VAGIN RADHA (RRNA ), SWAB trichomonas vaginalis ribosomal RNA (rrna) Negati ve negati ve Not Available [facility] (Lab) [address] [place], [address], 12/05/2023 10:33:52 12/02/19 24 12/02/2023 VAGIN ITIS/ VAGIN OSIS, DNA PROBE nay sp. detection, direct probe Positi ve negati ve abnormal Not Available [facility] (Lab) [address] [place], [address], 12/05/2023 10:33:52 12/02/19 24 12/02/2023 VAGIN ITIS/ VAGIN OSIS, DNA PROBE gardnerella vag. detection, direct probe Negati ve negati ve Not Available [facility] (Lab) [address] [facility], [place], [address], 12/05/2023 10:33:52 12/02/19 24 12/02/2023 VAGIN ITIS/ VAGIN OSIS, DNA PROBE trichomonas vag. detection, direct probe Negati ve negati ve Not Available [facility] (Lab) [address] [facility], [place], [address], 12/05/2023 10:33:52 12/18/19 25 12/17/2024 WOMEN 'S HEALT H SWAB PLUS, ANGÉLICA bacterial vaginosis (bv), tma Positi ve negati ve abnormal Not Available [facility] (Lab) [address] [facility], [place], [address], 12/18/2024 15:18:05 12/18/19 25 12/17/2024 WOMEN 'S HEALT H SWAB PLUS, ANGÉLICA nay species, tma Negati ve negati ve Not Available [facility] (Lab) [address] [place], [address], 12/18/2024 15:18:05 12/18/19 25 12/17/2024 WOMEN 'S HEALT H SWAB PLUS, ANGÉILCA nay glabrata, tma Negati ve negati ve Not Available [facility] (Lab) [address] [place], [address], 12/18/2024 15:18:05 12/18/19 25 12/17/2024 WOMEN 'S HEALT H SWAB PLUS, ANGÉLICA trichomonas vaginalis, tma Negati ve negati ve Not Available [facility] (Lab) [address] [place], [address], 12/18/2024 15:18:05 12/18/19 25 12/17/2024 WOMEN 'S HEALT H SWAB PLUS, ANGÉLICA chlamydia trachomatis, PCR Negati ve negati ve Not Available [facility] (Lab) [address] , [place], [address], 12/18/2024 15:18:05 12/18/1912/17/2024 WOMEN 'S HEALT H SWAB PLUS, ANGÉLICA [...] ded in this panel . Not Available [facility] (Lab) [address] , [place], [address], 12/18/2024 15:18:05 12/18/1912/17/2024 pregn laura test, urine HCG negati ve Not Available [place] [address], [place], [address], 12/17/2024 16:53:48 01/17/2001/16/2025 BHCG, QUANT ITATI VE B-HCG <0.2 mIU/m L 0.0-4. 9 This assay was perfo rmed using [employer] ratio n reage nts and test kits. Value s obtai carlos with other assay metho ds or kits canno t be used inter rodriguez eably . Refer ence Range s: Non-p regna nt, preme nopau ritu women : 0.0-4 .9 mIU/m L Postm enopa usal women : 0.0-7 .0 mIU/m L Brigette l Pregn laura: Gesta aliya l Age bHCG Conc. - mIU/m L 3 Weeks 5.8 - 71.7 4 Weeks 9.5 - 750 5 Weeks 217-7 138 6 Weeks 158 - 31,79 5 7 Weeks 3,697 - 162,5 63 8 Weeks 32,06 5 - 149,5 71 9 Weeks 63,80 3 - 151,4 10 10 Weeks 46,50 9 - 186,9 77 12 Weeks 27,83 2 - 210,6 12 14 Weeks 13,95 0 - 62,53 0 15 Weeks 12,03 9 - 70,97 1 16 Weeks 9,040 - 56,45 1 17 Weeks 8,175 - 55,86 8 18 Weeks 8,099 - 58,17 6 Not Available [facility] (Lab) [address] [facility], [place], [address], 01/17/2025 03:36:24 12/19/19 25 12/19/2024 US, pelvi s No observ ation record ed. [email or web address] [place] [address], [place], [address], 12/19/2024 18:29:54 12/19/19 25 12/19/2024 , trans vagin al No observ ation record ed. [email or web address] [place] [address], [place], [address], 12/19/2024 18:30:04 12/19/19 25 12/18/2024 US, pelvi s No observ ation record ed. GIGI Wilkinson [address], [place], [address], 12/31/2024 18:49:14 Result Notes None recorded. Procedures Surgical History None recorded. Imaging Results Imaging Date Name Status LastModified by Organization Details LastModified Time 12/19/2024 US, pelvis completed [email or web address] [place] [address], [place], [address], 12/19/2024 18:29:54 12/19/2024 US, transvaginal completed [email or web address] [facility] [address], [place], [address], 12/19/2024 18:30:04 12/18/2024 US, pelvis completed GIGI Jaja [address], [place], [address], 12/31/2024 18:49:14 Procedure Notes None recorded. Medical [...] 4 170.18 cm 18.7 kg/m2 13 % 12361.9 3 g 122 mm[Hg] 77 mm[Hg] Claudine Trivedi [facility] 4 12:01:33 Date Recorded Body height Body mass index (BMI) Body mass index (BMI) [Percentile] Per age and sex Body weight Systolic blood pressure Diastolic blood pressure Provider Name and Address Organization Details Last Updated DateTime 5 170.18 cm 17.9 kg/m2 5 % 32379.5 3 g 114 mm[Hg] 80 mm[Hg] Alison Borges [facility] 5 16:08:27 Social History [...] 17:37:16 Father Pulmonary embolism [email or web address] Not available 0409/2024 17:37:16 Brother Diabetes mellitus [email or web address] Not available 2023 12:11:16 Brother Asthma [email or web address] Not available 0 12/02/2023 12:11:23 Paternal Grandfather Malignant neoplasm of lung dswayne Not available 2023 12:12:29 [...] SNOMED-CT Code Diagnosis ICD10 Code Diagnosis Note [id number] JOHN Luke [place] [address] [address] 12/02/2023 11:37:34 12/02/2023 14:38:41 Urinary symptoms 512352877 R39.9 Vaginitis 96003964 N76.0 vaginitis/ STI testing sentUA/cx sentvulvar care guidelines discusseds afe sexual practices discussedr x sent for UTI and yeast - r/b/a reviewed Venereal d isease screening 928554932 Z11.3 Contracept ion care management [id number] Z30.9 all BC methods discussed - r/b/a reviewedce nter for young womens health handout givenshe is going to consider her options and notify the office with what she decides Time spent in visit is a total of 30 mins with at least 50% of visit consisting of counseling and review of plan of care. [id number] JOHN Luke [place] [address] [address] 12/17/2024 15:48:18 12/17/2024 16:55:06 Dyspareunia [id number] N94.10 UPT (-)vaginit is/STI panel sentwe agreed to TVUS for further evaluation will update pt with results when available and discuss next steps / recommenda tions Time spent in visit is a total of 20 mins with at least 50% of visit consisting of counseling and review of plan of care. Vaginal odor [id number] N 89.8 Venereal d isease screening 761900861 Z11.3 [id number] Damon Floyd MD [place] [address] [address] 12/18/2024 17:37:10 12/19/2024 08:45:14 Dyspareunia [id number] N94.10 N92.6 Health Concerns Section Related Observation LastModified by Organization Detai ls LastModified Time None Recorded Concern Status LastModified by Organization Details LastModified Time None Recorded Advance Directives Directive None Recorded Payers Encounter Date Sequence Insurance Name Policy Number Policy Villafuerte Covered Member ID Villafuerte Member ID Guarantor Name 12/02/2023 1 [place] [employer] Melanie Bajwa [id number] Melanie Bajwa 12/17/2024 1 [facility] - DOS ON OR AFTER 21 (MEDICAID REPLACEMENT - HMO) 2EDERRELL Bajwa [id number] Melanie Bajwa 12/18/2024 1 [facility] - DOS ON OR AFTER 21 (MEDICAID REPLACEMENT - HMO) 2EDERRELL Bajwa [id number] Melanie Bajwa Notes Date Note Type Note Provider Name and Address Organization Details Recorded Time 4 text/html 18yo [id number] for urinary/vaginal symptoms and to discuss BC optionsurinary burning/frequency x 1 weekvaginal discharge/itching x 1 weekneg flank painsneg n/v/fneg flu-like symptomsNot currently SA but has been in the past denies h/o DVT/PE, HTN, Stroke/[place], cancer, liver disease, or migraine with aura JOHN Luke [address], [place], [address], [facility] 12/02/2023 13:23:48 5 text/html 19yo [id number] for evaluation of dyspareuniasymptoms started 3 weeks agolower pelvic pain with some acts of IC, resolves shortly afterSA with current partner x 5 months, uses condoms for BC, no issues with dyspareunia prior to 3 weeks agovaginal odor at times neg n/v/fneg dischargeneg flu-like symptomsneg urinary symptomsbowel movements wnl JOHN Luke [address], [place], [address], [facility] 12/17/2024 16:54:27 OBGyn Episode No OBEpisode recorded.
[2025-01-30 14:19] LABS: Alanine Aminotransferase 13 U/L (6-35); Albumin Level 4.4 g/dL (3.5-5.1); Alkaline Phosphatase 52 U/L (38-126); Anion Gap 10 mmol/L (4-12); Aspartate Amino Transferase 25 U/L (14-36); Bilirubin,Total 0.7 mg/dL (0.2-1.3); Blood Urea Nitrogen 10 mg/dL (7-17); Calcium 9.3 mg/dL (8.4-10.2); Carbon Dioxide 21 mmol/L (22-30); Chloride 108 mmol/L (98-107); Estimated CRCL calculation 93 ml/min; Estimated Glomerular Filt Rate > 60; Glucose 120 mg/dL (65-110); Lipase 117 U/L (23-300); Potassium 3.7 mmol/L (3.4-5.0); Sodium 139 mmol/L (137-145)
[2025-01-30 14:22] LABS: Basophils Percent Auto 0.7 % (0.2-1.2); Eosinophils Absolute Auto 0.1 K/mm3 (0-0.3); Eosinophils Percent Auto 2.5 % (0-4.4); Hematocrit 36.1 % (37.0-47.0); Hemoglobin 11.3 g/dL (12.0-15.0); Immature Granulocyte Absolute 0.02 K/mm3 (0.00-0.031); Immature Granulocyte Percent A 0.5 % (0-0.5); Lymphocytes Absolute Auto 1.21 K/mm3 (0.9-3.2); Lymphocytes Percent Auto 27.6 % (18.3-44.2); Mean Corpuscular HGB Conc 31.3 g/dl (32-36); Mean Corpuscular Hemoglobin 26.6 pg (26-34); Mean Corpuscular Volume 84.9 fl (80-100); Mean Platelet Volume 12.5 fl (7.4-10.4); Monocytes Absolute Auto 0.4 K/mm3 (0.1-0.6); Monocytes Percent Auto 9.6 % (2.6-8.5); Neutrophils Absolute Auto 2.6 K/mm3 (1.3-6.7); Neutrophils Percent Auto 59.1 % (45.5-73.1); Platelet Count Result 197 k/mm3 (150-375); Red Blood Count 4.25 M/mm3 (4.2-5.4); Red Cell Distribution Width 13.6 % (11.5-14.5); White Blood Count 4.4 K/mm3 (4.5-10.0)
--- NOTE | 2025-01-30 14:34 | ED_ITS ---
HPI - General Adult General Chief complaint: Abdominal Pain Stated complaint: pain all over, low blood sugar Time Seen by Provider: 01/30/25 13:39 History of Present Illness HPI narrative: Patient 19-year-old female who presents emergency department with chief complaint of abdominal pain nausea vomiting appetite. The patient states she has not been able to eat for the last several days reports that she has felt weak and reports that her abdomen has been a hurting her Related Data Allergies Allergy/AdvReac Type Severity Reaction Status Date / Time No Known Allergies Allergy Verified 01/30/25 13:43 Review of Systems 2 Review of Systems: A 10 system review of systems was completed on the patient and is negative except for what is stated in the HPI. Nursing and ancillary documentation was reviewed. PMFSH Past Medical History Medical History No pertinent past medical history Surgical History Surgical History History of laparoscopic appendectomy 09/20/[address] Pearson No pertinent past surgical history Social History Social History Smoking status: Never smoker Alcohol intake: never Substance use: never Substance use type: does not use Do You Feel Safe in your Home?: Yes Lack of Transportation: No Lack of Food: Never True Current Housing: I Have Housing Concerned About Future Housing: No Difficulty Paying Gas/Electric Bills: No Difficulty Paying for Meds: No Currently Unemployed: YES Education: High School Diploma/GED Difficulty w/ Childcare or Family Care: No Exam 2 Narrative: GENERAL: Well-appearing, well-nourished, and in no acute distress. HEAD: Normocephalic, atraumatic. EYES: PERRLA and EOMI. ENT: Nares clear, no rhinorrhea or epistaxis. Mucous membranes moist. NECK: Supple. CHEST: Clear to auscultation. No respiratory distress. HEART: Regular rate and rhythm. No murmur heard. Normal peripheral pulses. ABDOMEN: Soft, nontender, nondistended, normal active bowel sounds. EXTREMITIES: Normal range of motion. No edema. SKIN: Warm, dry, no rash. NEURO: No focal deficits. Alert and oriented x3. PSYCH: Normal mood and affect. Course Vital Signs Vital signs: Vital Signs Temperature 36.8 C 01/30/25 13:36 Pulse Rate 79 01/30/25 13:36 Respiratory Rate 15 01/30/25 13:36 Blood Pressure 114/82 01/30/25 13:36 Pulse Oximetry 98 01/30/25 13:36 Oxygen Delivery Room Air 01/30/25 13:36 Temperature 36.8 C 01/30/25 13:36 Pulse Rate 79 01/30/25 13:36 Respiratory Rate 15 01/30/25 13:36 Blood Pressure 114/82 01/30/25 13:36 Pulse Oximetry 98 01/30/25 13:36 Oxygen Delivery Room Air 01/30/25 13:36 Medical Decision Making MDM Narrative Medical decision making narrative: Differential diagnosis includes viral illness, dehydration, intra-abdominal infection, dehydration, UTI Laboratory studies were obtained on the patient showed no significant abnormality urinalysis showed no evidence UTI CT scan of the abdomen pelvis showed no acute abnormalities. COVID flu RSV were negative Vital Signs Vital Signs: Vital Signs Temperature 36.8 C 01/30/25 13:36 Pulse Rate 79 01/30/25 13:36 Respiratory Rate 15 01/30/25 13:36 Blood Pressure 114/82 01/30/25 13:36 Pulse Oximetry 98 01/30/25 13:36 Oxygen Delivery Room Air 01/30/25 13:36 Temperature 36.8 C 01/30/25 13:36 Pulse Rate 79 01/30/25 13:36 Respiratory Rate 15 01/30/25 13:36 Blood Pressure 114/82 01/30/25 13:36 Pulse Oximetry 98 01/30/25 13:36 Oxygen Delivery Room Air 01/30/25 13:36 Lab Data 01/30/25 14:00 01/30/25 14:00 Labs: Lab Results 01/30/25 01/30/25 01/30/25 Range/Units 13:42 14:00 14:19 WBC 4.4 L (4.5-10.0) K/mm3 RBC 4.25 (4.2-5.4) M/mm3 Hgb 11.3 L (12.0-15.0) g/dL Hct 36.1 L (37.0-47.0) % MCV 84.9 (80-100) fl MCH 26.6 (26-34) pg MCHC 31.3 L (32-36) g/dl RDW 13.6 (11.5-14.5) % Plt Count 197 (150-375) k/mm3 MPV 12.5 H (7.4-10.4) fl Immature Gran % (Auto) 0.5 (0-0.5) % Neut % (Auto) 59.1 (45.5-73.1) % Lymph % (Auto) 27.6 (18.3-44.2) % [place] % (Auto) 9.6 H (2.6-8.5) % Eos % (Auto) 2.5 (0-4.4) % Baso % (Auto) 0.7 (0.2-1.2) % Lymph # (Auto) 1.21 (0.9-3.2) K/mm3 [place] # (Auto) 0.4 (0.1-0.6) K/mm3 Eos # (Auto) 0.1 (0-0.3) K/mm3 Baso # (Auto) 0.0 (0.0-0.1) K/mm3 Abs Immat Gran (auto) 0.02 (0.00-0.031) K/mm3 Absolute Neuts (auto) 2.6 (1.3-6.7) K/mm3 Absolute Nucleated RBC 0.000 (0.0-0.012) K/mm3 Nucleated RBC % 0.0 (0.0-0.2) % Sodium 139 (137-145) mmol/L Potassium 3.7 (3.4-5.0) mmol/L Chloride 108 H (98-107) mmol/L Carbon Dioxide 21 L (22-30) mmol/L Anion Gap 10 (4-12) mmol/L BUN 10 D (7-17) mg/dL Creatinine 0.70 (0.7-1.0) mg/dL Estim Creat Clear Calc 93 ml/min Estimated GFR > 60 (59 - ) Glucose 120 H (65-110) mg/dL POC Capillary Glucose 140 H (65-105) mg/dl Calcium 9.3 (8.4-10.2) mg/dL Total Bilirubin 0.7 (0.2-1.3) mg/dL AST 25 (14-36) U/L ALT 13 (6-35) U/L Alkaline Phosphatase 52 (38-126) U/L Total Protein 7.0 (6.3-8.2) g/dL Albumin 4.4 (3.5-5.1) g/dL Lipase 117 (23-300) U/L Urine Color (Yellow) Urine Appearance (Clear) Urine pH (5.0-9.0) Ur Specific [place] (1.001-1.035) Urine Protein (Negative) mg/dL Urine Glucose (UA) (Negative) mg/dL Urine Ketones (Negative) mg/dL Ur Blood (Man) (Negative) Urine Nitrate (Negative) Urine Bilirubin (Negative) Urine Urobilinogen (<2.0) mg/dL Leukocyte Esterase Rfl (Negative) MONIKA/UL Urine RBC (0-2) /hpf Urine WBC (0-3) /hpf Ur Squamous Epith Cells (Few) /hpf Urine Bacteria /hpf Urine Casts Urine Test Negative Influenza A (RT-PCR) Negative (Negative) Influenza B (RT-PCR) Negative (Negative) RSV (RT-PCR) Negative (Negative) SARS-CoV-2 RNA (RT-PCR) Negative (Negative) 01/30/25 Range/Units 14:21 WBC (4.5-10.0) K/mm3 RBC (4.2-5.4) M/mm3 Hgb (12.0-15.0) g/dL Hct (37.0-47.0) % MCV (80-100) fl MCH (26-34) pg MCHC (32-36) g/dl RDW (11.5-14.5) % Plt Count (150-375) k/mm3 MPV (7.4-10.4) fl Immature Gran % (Auto) (0-0.5) % Neut % (Auto) (45.5-73.1) % Lymph % (Auto) (18.3-44.2) % [place] % (Auto) (2.6-8.5) % Eos % (Auto) (0-4.4) % Baso % (Auto) (0.2-1.2) % Lymph # (Auto) (0.9-3.2) K/mm3 [place] # (Auto) (0.1-0.6) K/mm3 Eos # (Auto) (0-0.3) K/mm3 Baso # (Auto) (0.0-0.1) K/mm3 Abs Immat Gran (auto) (0.00-0.031) K/mm3 Absolute Neuts (auto) (1.3-6.7) K/mm3 Absolute Nucleated RBC (0.0-0.012) K/mm3 Nucleated RBC % (0.0-0.2) % Sodium (137-145) mmol/L Potassium (3.4-5.0) mmol/L Chloride (98-107) mmol/L Carbon Dioxide (22-30) mmol/L Anion Gap (4-12) mmol/L BUN (7-17) mg/dL Creatinine (0.7-1.0) mg/dL Estim Creat Clear Calc ml/min Estimated GFR (59 - ) Glucose (65-110) mg/dL POC Capillary Glucose (65-105) mg/dl Calcium (8.4-10.2) mg/dL Total Bilirubin (0.2-1.3) mg/dL AST (14-36) U/L ALT (6-35) U/L Alkaline Phosphatase (38-126) U/L Total Protein (6.3-8.2) g/dL Albumin (3.5-5.1) g/dL Lipase (23-300) U/L Urine Color Yellow (Yellow) Urine Appearance Cloudy H (Clear) Urine pH 8.5 (5.0-9.0) Ur Specific [place] 1.006 (1.001-1.035) Urine Protein Negative (Negative) mg/dL Urine Glucose (UA) Negative (Negative) mg/dL Urine Ketones Negative (Negative) mg/dL Ur Blood (Man) Negative (Negative) Urine Nitrate Negative (Negative) Urine Bilirubin Negative (Negative) Urine Urobilinogen 0.2 (<2.0) mg/dL Leukocyte Esterase Rfl Negative (Negative) MONIKA/UL Urine RBC 0-2 (0-2) /hpf Urine WBC 0-5 (0-3) /hpf Ur Squamous Epith Cells Occasional (Few) /hpf Urine Bacteria None seen /hpf Urine Casts 0-2 Urine Test Influenza A (RT-PCR) (Negative) Influenza B (RT-PCR) (Negative) RSV (RT-PCR) (Negative) SARS-CoV-2 RNA (RT-PCR) (Negative) Discharge Plan Discharge Clinical Impression: Abdominal pain, Nausea & vomiting Patient Disposition: Home Condition: Stable Instructions: Antibiotic Form, Acute Nausea and Vomiting (ED), Abdominal Pain (ED) Patient Language: Macedonian Prescriptions: New ondansetron 4 mg tablet,disintegrating 4 mg PO Q8H PRN (Reason: nausea and vomiting) Qty: 10 0RF No Action docusate sodium 100 mg capsule 100 mg PO BID Qty: 60 0RF Preparation H 0.25-14-74.9 % ointment 1 applic RECTAL QAM AND QHS Qty: 28 0RF hydroxyzine HCl 25 mg tablet 25 mg PO TID PRN (Reason: anxiety) Qty: 30 0RF Follow-up/Referrals: Bay Priest MD [Physician] - UNKNOWN,DOCTOR [Primary Care Provider] - Time of Disposition: 16:24
[2025-01-30 14:36] LABS: Add Urine Microscopic? YES; Appearance Urine Cloudy (Clear); Bacteria Urine None Seen /hpf; Bilirubin Urine Negative (Negative); Blood Urine Negative (Negative); Color Urine Yellow (Yellow); Glucose Urine UA Negative (Negative); Ketones Urine Negative (Negative); Leukocyte Esterase Ur Negative LEU/UL (Negative); Nitrate Urine Negative (Negative); Non Pathogenic Casts 0-2; Protein Urine Negative (Negative); RBC Urine 0-2 /hpf (0-2); Specific Grav Ur 1.006 (1.001-1.035); Squamous Epithelial Cell Urine Occasional /hpf (Few); Urobilinogen Urine 0.2 mg/dL (<2.0); WBC Urine 0-5 /hpf (0-3); pH Urine 8.5 (5.0-9.0)
[2025-01-30 14:45] LABS: Influenza A QL RT-PCR Negative (Negative); Influenza B QL RT-PCR Negative (Negative); RSV RNA, RT-PCR Negative (Negative); SARS-CoV-2 RNA PCR Negative (Negative)
[2025-01-30 14:50] LABS: Pregnancy On Board Control Positive; Urine Pregnancy Test Negative
[2025-01-30 16:30] VITALS: BP 110/74; PULSE 71; RESP 20; TEMP 37; O2SAT 100
== END 2025-01-30 16:40 | disposition home or self-care (01) ==
PROVIDERS: Emergency Provider Emergency Medicine
DX: R11.2 Nausea with vomiting, unspecified (principal); R10.9 Unspecified abdominal pain; Z20.822 Contact with and (suspected) exposure to COVID-19
CPT/HCPCS: 36415; 74177; 80053; 81001; 81025; 82948; 83690; 85025; 87637; 96361; 96374; 99284; J2405; J7030; Q9967

== ENCOUNTER 2025-02-01 13:32 | Emergency (ER) | payer OTHER, SELFPAY ==
--- OUTSIDE RECORDS SUMMARY | 2025-02-01 13:42 | XMS_ITS | Data Portability ---
Author Organization [facility] [place] Address [address] [place] [address] [place] [address] Assessment No assessment recorded. Plan of Treatment Reminders Order Date Submit Date Provider Last Modified By Organization Details Last Modified Time Details Appointments None recorded. Lab test, urine 2024 025 [email or web address] [place], [address], [place], [address], 16:53:54 unlisted lab - women's health swab plus, ANGÉLICA 2024 025 [facility] (Lab), [address], [place], [address], 15:18:05 Referral None recorded. Procedures None recorded. Surgeries None recorded. Imaging US, pelvis 2024 025 [email or web address] [place], [address], [place], [address], 22:08:38 US, transvagina l 2024 025 [facility], [place], [address], 18:30:04 US, pelvis, complete 2024 025 [email or web address] 1 [place], [place], [address], 5 11:10:39 Medication Orders Macrobid 100 mg capsule 2023 024 [email or web address] [id number], [address], [place], [address], 5 16:03:05 fluconazole 150 mg tablet 2023 024 [email or web address] [id number] In [facility], [address], [place], [address], 5 16:03:05 Patient TargetsNo targets recorded. Patient InstructionsNo instructions recorded. Reason for Referral None Reported. Results Created Date Observation Date Name Description Value Unit Range Abnormal Flag Note LastModifiedBy Organization Detail LastModifiedTime 12/02/19 24 12/02/2023 CT/GC AND TRICH OMONA S VAGIN RADHA (RRNA ), SWAB chlamydia trachomatis, PCR Negati ve negati ve Not Available [facility] (Lab) [address], [place], [address], 12/05/2023 10:33:52 12/02/19 24 12/02/2023 CT/GC AND TRICH OMONA S VAGIN RADHA (RRNA ), SWAB neisseria gonorrhoeae, PCR Negati ve negati ve Not Available [facility] (Lab) [address], [place], [address], 12/05/2023 10:33:52 12/02/19 24 12/02/2023 CT/GC AND TRICH OMONA S VAGIN RADHA (RRNA ), SWAB trichomonas vaginalis ribosomal RNA (rrna) Negati ve negati ve Not Available [facility] (Lab) [address] [place], [address], 12/05/2023 10:33:52 12/02/19 24 12/02/2023 VAGIN ITIS/ VAGIN OSIS, DNA PROBE nay sp. detection, direct probe Positi ve negati ve abnormal Not Available [facility] (Lab) [address] [place], [address], 12/05/2023 10:33:52 12/02/19 24 12/02/2023 VAGIN ITIS/ VAGIN OSIS, DNA PROBE gardnerella vag. detection, direct probe Negati ve negati ve Not Available [facility] (Lab) [address], [place], [address], 12/05/2023 10:33:52 12/02/19 24 12/02/2023 VAGIN ITIS/ VAGIN OSIS, DNA PROBE trichomonas vag. detection, direct probe Negati ve negati ve Not Available [facility] (Lab) [address], [place], [address], 12/05/2023 10:33:52 12/18/19 25 12/17/2024 WOMEN 'S HEALT H SWAB PLUS, ANGÉLICA bacterial vaginosis (bv), tma Positi ve negati ve abnormal Not Available [facility] (Lab) [address], [place], [address], 12/18/2024 15:18:05 12/18/19 25 12/17/2024 WOMEN 'S HEALT H SWAB PLUS, ANGÉLICA nay species, tma Negati ve negati ve Not Available [facility] (Lab) [address] [place], [address], 12/18/2024 15:18:05 12/18/19 25 12/17/2024 WOMEN 'S HEALT H SWAB PLUS, ANGÉLICA nay glabrata, tma Negati ve negati ve Not Available [facility] (Lab) [address] [place], [address], 12/18/2024 15:18:05 12/18/19 25 12/17/2024 WOMEN 'S HEALT H SWAB PLUS, ANGÉLICA trichomonas vaginalis, tma Negati ve negati ve Not Available [facility] (Lab) [address] [place], [address], 12/18/2024 15:18:05 12/18/19 25 12/17/2024 WOMEN 'S HEALT H SWAB PLUS, ANGÉLICA chlamydia trachomatis, PCR Negati ve negati ve Not Available [facility] (Lab) [address] , [place], [address], 12/18/2024 15:18:05 12/18/1912/17/2024 WOMEN 'S HEALT H [...] ded in this panel . Not Available [facility] (Lab) [address] , [place], [address], 12/18/2024 15:18:05 12/18/1912/17/2024 pregn laura test, urine HCG negati ve Not Available [place] [address], [place], [address], 12/17/2024 16:53:48 01/17/2001/16/2025 BHCG, QUANT ITATI VE [...] Weeks 8,099 - 58,17 6 Not Available [facility] (Lab) [address], [place], [address], 01/17/2025 03:36:24 12/19/19 25 12/19/2024 US, pelvi s No observ ation record ed. [email or web address] [place] [address], [place], [address], 12/19/2024 18:29:54 12/19/19 25 12/19/2024 , trans vagin al No observ ation record ed. [email or web address] [place] [address], [place], [address], 12/19/2024 18:30:04 12/19/19 25 12/18/2024 US, pelvi s No observ ation record ed. GIGI Wilkinson [address], [place], [address], 12/31/2024 18:49:14 Result Notes None recorded. Procedures Surgical History None recorded. Imaging Results Imaging Date Name Status LastModified by Organization Details LastModified Time 12/19/2024 US, pelvis completed [email or web address] [place] [address], [place], [address], 12/19/2024 18:29:54 12/19/2024 US, transvaginal completed [email or web address] [facility] [address], [place], [address], 12/19/2024 18:30:04 12/18/2024 US, pelvis completed GIGI Jaja [address], [place], [address], 12/31/2024 18:49:14 Procedure Notes None recorded. Medical [...] 4 170.18 cm 18.7 kg/m2 13 % 12461.9 3 g 122 mm[Hg] 77 mm[Hg] Claudine Trivedi [facility] 4 12:01:33 Date Recorded Body height Body mass index (BMI) Body mass index (BMI) Percentile per age and sex Body weight Systolic blood pressure Diastolic blood pressure Provider Name and Address Organization Details Last Updated DateTime 5 170.18 cm 17.9 kg/m2 5 % 34801.5 3 g 114 mm[Hg] 80 mm[Hg] Alison Borges [facility] 5 16:08:27 Social History Question Answer [...] SNOMED-CT Code Diagnosis ICD10 Code Diagnosis Note [id number] JOHN Luke [place] [address] [address] 12/02/2023 11:37:34 12/02/2023 14:38:41 Urinary symptoms 144588576 R39.9 Vaginitis 80718939 N76.0 vaginitis/ STI testing sentUA/cx sentvulvar care guidelines discusseds afe sexual practices discussedr x sent for UTI and yeast - r/b/a reviewed Venereal d isease screening 591794399 Z11.3 Contracept ion care management 819224758 Z30.9 all BC methods discussed - r/b/a reviewedce nter for young womens health handout givenblanche is going to consider her options and notify the office with what she decides Time spent in visit is a total of 30 mins with at least 50% of visit consisting of counseling and review of plan of care. [id number] JOHN Luke [place] [address] [address] 12/17/2024 15:48:18 12/17/2024 16:55:06 Dyspareunia 62589656 N94.10 UPT (-)vaginit is/STI panel sentwe agreed to TVUS for further evaluation will update pt with results when available and discuss next steps / recommenda tions Time spent in visit is a total of 20 mins with at least 50% of visit consisting of counseling and review of plan of care. Vaginal odor 053903424 N 89.8 Venereal d isease screening 551391509 Z11.3 [id number] Damon Floyd MD [place] [address] [address] 12/18/2024 17:37:10 12/19/2024 08:45:14 Dyspareunia 88214574 N94.10 N92.6 Health Concerns Section Related Observation LastModified by Organization Detai ls LastModified Time None Recorded Concern Status LastModified by Organization Details LastModified Time None Recorded Advance Directives Directive None Recorded Payers Encounter Date Sequence Insurance Name Policy Number Policy Villafuerte Covered Member ID Villafuerte Member ID Guarantor Name 12/02/2023 1 [place] [employer] Melanie Bajwa [id number] Melanie Bajwa 12/17/2024 1 [facility] - DOS ON OR AFTER 21 (MEDICAID REPLACEMENT - HMO) [id number] Melanie Bajwa [id number] Melanie Bajwa 12/18/2024 1 [facility] - DOS ON OR AFTER 21 (MEDICAID REPLACEMENT - HMO) [id number] Melanie Bajwa [id number] Melanie Bajwa Notes Date Note Type Note Provider Name and Address Organization Details Recorded Time 4 text/html 18yo [id number] for urinary/vaginal symptoms and to discuss BC optionsurinary burning/frequency x 1 weekvaginal discharge/itching x 1 weekneg flank painsneg n/v/fneg flu-like symptomsNot currently SA but has been in the past denies h/o DVT/PE, HTN, Stroke/AK, cancer, liver disease, or migraine with aura JOHN Luke [address], [place], [address], [facility] 12/02/2023 13:23:48 5 text/html 19yo [id number] for evaluation of dyspareuniasymptoms started 3 weeks agolower pelvic pain with some acts of IC, resolves shortly afterSA with current partner x 5 months, uses condoms for BC, no issues with dyspareunia prior to 3 weeks agovaginal odor at times neg n/v/fneg dischargeneg flu-like symptomsneg urinary symptomsbowel movements wnl JOHN Luke [address], [place], [address], [facility] 12/17/2024 16:54:27 OBGyn Episode No OBEpisode recorded.
[2025-02-01 14:32] VITALS: BP 118/70; PULSE 89; RESP 16; TEMP 36.4; O2SAT 99
--- NOTE | 2025-02-01 15:46 | ED.GENADULT ---
HPI - General Adult General Chief complaint: Psychiatric Symptoms <Bettye Alexander MUSEUM ARCHIVIST - Last Filed: 02/01/25 15:51> Stated complaint: Having hallucinations-seeing people <Bettye Alexander MUSEUM ARCHIVIST - Last Filed: 02/01/25 15:51> Time Seen by Provider: 02/01/25 15:46 <Bettye Machado January MUSEUM ARCHIVIST - Last Filed: 02/01/25 15:51> Focused HPI: Melanie Bajwa is a 19 y/o female who presents with reports that she started to hallucinate people that look very real starting last night. She states one of the people was sitting right next to her and she could feel his hand on her leg. SHe states one was a little girl and she could hear her laughing. Otherwise not hearing any voices. Denies any drug use She has hx of anxiety and takes hydroxyzine that she started a coupe weeks ago.. Denies SI/HI GENERAL: Well-appearing, well-nourished, and in no acute distress. HEAD: Normocephalic, atraumatic. CHEST: Clear to auscultation. No respiratory distress. HEART: Regular rate and rhythm. NEURO: Alert and oriented x3. Patient screened in triage and initial orders placed. Additional care and disposition to be based upon diagnostic testing and treatment. <Bettye Machado January MUSEUM ARCHIVIST - Last Filed: 02/01/25 15:51> History of Present Illness HPI narrative: Agree the HPI. Visual hallucinations starting last night and continuing today. She has seen 7 people total that do not exist other people. One was holding a knife. Another was a child and she could hear the child beating its head in the ground. Denies drug use. No weight loss. No family history of psychosis. No increased stress at home or work. No change in sleep habits. No change in eating habits. <Carlitos Robles MD - Last Filed: 02/01/25 21:15> Related Data Allergies/adverse reactions: Allergies Allergy/AdvReac Type Severity Reaction Status Date / Time No Known Allergies Allergy Verified 01/30/25 13:43 <Bettye Machado January MUSEUM ARCHIVIST - Last Filed: 02/01/25 15:51> Review of Systems Review of Systems: All systems reviewed & are unremarkable except as noted in HPI and below <Carlitos Robles MD - Last Filed: 02/01/25 21:15> Constitutional: Constitutional: Reports no additional constitutional complaints <Carlitos Robles MD - Last Filed: 02/01/25 21:15> Cardiovascular: Cardiovascular: Reports no additional cardiovascular complaints <Carlitos Robles MD - Last Filed: 02/01/25 21:15> Respiratory: Respiratory: Reports no additional respiratory complaints <Carlitos Robles MD - Last Filed: 02/01/25 21:15> Gastrointestinal: Gastrointestinal: Reports no additional gastrointestinal complaints <Carlitos Robles MD - Last Filed: 02/01/25 21:15> Psychiatric: Psychiatric: Denies homicidal ideation and Denies suicidal ideation <Carlitos Robles MD - Last Filed: 02/01/25 21:15> Comments: + visual hallucination, - auditory hallucinations <Carlitos Robles MD - Last Filed: 02/01/25 21:15> PMFSH Past Medical History Medical History: Medical History No pertinent past medical history <Bettye Alexander, MUSEUM ARCHIVIST - Last Filed: 02/01/25 15:51> Surgical History Surgical History: Surgical History History of laparoscopic appendectomy 09/20/[address] Pearson No pertinent past surgical history <Bettye Alexander, MUSEUM ARCHIVIST - Last Filed: 02/01/25 15:51> Social History Social History: Social History Smoking status: Never smoker Alcohol intake: never Substance use: never Substance use type: does not use Do You Feel Safe in your Home?: Yes Lack of Transportation: No Lack of Food: Never True Current Housing: I Have Housing Concerned About Future Housing: No Difficulty Paying Gas/Electric Bills: No Difficulty Paying for Meds: No Currently Unemployed: YES Education: High School Diploma/GED Difficulty w/ Childcare or Family Care: No <Bettye Alexander, MUSEUM ARCHIVIST - Last Filed: 02/01/25 15:51> Exam Narrative: GENERAL: Well-appearing, well-nourished, and in no acute distress. HEAD: Normocephalic, atraumatic. EYES: PERRL and EOMI. ENT: Mucous membranes moist. CHEST: Clear to auscultation. No respiratory distress. HEART: Regular rate and rhythm. Normal peripheral pulses. ABDOMEN: Soft, nontender, nondistended. EXTREMITIES: Normal range of motion. No edema. SKIN: Warm, dry, no rash. NEURO: Alert and oriented x3. PSYCH: Normal mood and affect. Patient is not responding to internal stimuli though she reports having visual hallucinations. No SI/HI. <Carlitos Robles MD - Last Filed: 02/01/25 21:15> Course Course Emergency Course: Patient medically cleared for evaluation by crisis/[facility]. Evaluated by [facility]. Patient is reporting tactile hallucinations with the visual hallucinations. Patient is voluntary for placement at this time. <Carlitos Robles MD - Last Filed: 02/01/25 21:15> Patient medically cleared for evaluation by crisis/[facility]. Evaluated by [facility]. Patient is reporting tactile hallucinations with the visual hallucinations. Patient is voluntary for placement at this time. <Stefano Oseguera MD - Last Filed: 02/02/25 07:01> Vital Signs Vital signs: Vital Signs Temperature 36.4 C 02/01/25 14:32 Pulse Rate 89 02/01/25 14:32 Respiratory Rate 16 02/01/25 14:32 Blood Pressure 118/70 02/01/25 14:32 Pulse Oximetry 99 02/01/25 14:32 Temperature 36.7 C 02/02/25 00:54 Pulse Rate 82 02/02/25 00:54 Respiratory Rate 14 02/02/25 00:54 Blood Pressure 114/76 02/02/25 00:54 Pulse Oximetry 100 02/02/25 00:54 <Bettye Alexander APRN - Last Filed: 02/01/25 15:51> Vital Signs Temperature 36.4 C 02/01/25 14:32 Pulse Rate 89 02/01/25 14:32 Respiratory Rate 16 02/01/25 14:32 Blood Pressure 118/70 02/01/25 14:32 Pulse Oximetry 99 02/01/25 14:32 Temperature 36.7 C 02/02/25 00:54 Pulse Rate 82 02/02/25 00:54 Respiratory Rate 14 02/02/25 00:54 Blood Pressure 114/76 02/02/25 00:54 Pulse Oximetry 100 02/02/25 00:54 <Carlitos Robles MD - Last Filed: 02/01/25 21:15> Vital Signs Temperature 36.4 C 02/01/25 14:32 Pulse Rate 89 02/01/25 14:32 Respiratory Rate 16 02/01/25 14:32 Blood Pressure 118/70 02/01/25 14:32 Pulse Oximetry 99 02/01/25 14:32 Temperature 36.7 C 02/02/25 00:54 Pulse Rate 82 02/02/25 00:54 Respiratory Rate 14 02/02/25 00:54 Blood Pressure 114/76 02/02/25 00:54 Pulse Oximetry 100 02/02/25 00:54 <Stefano Oseguera MD - Last Filed: 02/02/25 07:01> Medical Decision Making Vital Signs Vital Signs: Vital Signs Temperature 36.4 C 02/01/25 14:32 Pulse Rate 89 02/01/25 14:32 Respiratory Rate 16 02/01/25 14:32 Blood Pressure 118/70 02/01/25 14:32 Pulse Oximetry 99 02/01/25 14:32 Temperature 36.7 C 02/02/25 00:54 Pulse Rate 82 02/02/25 00:54 Respiratory Rate 14 02/02/25 00:54 Blood Pressure 114/76 02/02/25 00:54 Pulse Oximetry 100 02/02/25 00:54 <Bettye Alexander APRN - Last Filed: 02/01/25 15:51> Vital Signs Temperature 36.4 C 02/01/25 14:32 Pulse Rate 89 02/01/25 14:32 Respiratory Rate 16 02/01/25 14:32 Blood Pressure 118/70 02/01/25 14:32 Pulse Oximetry 99 02/01/25 14:32 Temperature 36.7 C 02/02/25 00:54 Pulse Rate 82 02/02/25 00:54 Respiratory Rate 14 02/02/25 00:54 Blood Pressure 114/76 02/02/25 00:54 Pulse Oximetry 100 02/02/25 00:54 <Carlitos Robles MD - Last Filed: 02/01/25 21:15> Vital Signs Temperature 36.4 C 02/01/25 14:32 Pulse Rate 89 02/01/25 14:32 Respiratory Rate 16 02/01/25 14:32 Blood Pressure 118/70 02/01/25 14:32 Pulse Oximetry 99 02/01/25 14:32 Temperature 36.7 C 02/02/25 00:54 Pulse Rate 82 02/02/25 00:54 Respiratory Rate 14 02/02/25 00:54 Blood Pressure 114/76 02/02/25 00:54 Pulse Oximetry 100 02/02/25 00:54 <Stefano Oseguera MD - Last Filed: 02/02/25 07:01> Lab Data Result diagrams: 02/01/25 18:41 02/01/25 18:41 <Bettye Alexander APRN - Last Filed: 02/01/25 15:51> Labs: Lab Results 02/01/25 02/01/25 02/02/25 Range/Units 18:41 18:47 05:37 WBC 5.8 (4.5-10.0) K/mm3 RBC 4.23 (4.2-5.4) M/mm3 Hgb 11.3 L (12.0-15.0) g/dL Hct 36.5 L (37.0-47.0) % MCV 86.3 (80-100) fl MCH 26.7 (26-34) pg MCHC 31.0 L (32-36) g/dl RDW 13.9 (11.5-14.5) % Plt Count 214 (150-375) k/mm3 MPV 12.0 H (7.4-10.4) fl Immature Gran % (Auto) 0.3 (0-0.5) % Neut % (Auto) 57.4 (45.5-73.1) % Lymph % (Auto) 30.9 (18.3-44.2) % [place] % (Auto) 8.8 H (2.6-8.5) % Eos % (Auto) 1.9 (0-4.4) % Baso % (Auto) 0.7 (0.2-1.2) % Lymph # (Auto) 1.80 (0.9-3.2) K/mm3 [place] # (Auto) 0.5 (0.1-0.6) K/mm3 Eos # (Auto) 0.1 (0-0.3) K/mm3 Baso # (Auto) 0.0 (0.0-0.1) K/mm3 Abs Immat Gran (auto) 0.02 (0.00-0.031) K/mm3 Absolute Neuts (auto) 3.3 (1.3-6.7) K/mm3 Absolute Nucleated RBC 0.000 (0.0-0.012) K/mm3 Nucleated RBC % 0.0 (0.0-0.2) % Sodium 140 (137-145) mmol/L Potassium 3.8 (3.4-5.0) mmol/L Chloride 107 (98-107) mmol/L Carbon Dioxide 22 (22-30) mmol/L Anion Gap 11 (4-12) mmol/L BUN 8 (7-17) mg/dL Creatinine 0.81 (0.7-1.0) mg/dL Estim Creat Clear Calc 80 ml/min Estimated GFR > 60 (59 - ) Glucose 92 (65-110) mg/dL Calcium 9.3 (8.4-10.2) mg/dL Total Bilirubin 0.7 (0.2-1.3) mg/dL AST 25 (14-36) U/L ALT 13 (6-35) U/L Alkaline Phosphatase 59 (38-126) U/L Total Protein 8.0 (6.3-8.2) g/dL Albumin 4.7 (3.5-5.1) g/dL TSH (Reflex) 0.547 (0.465-4.68) uIU/mL Urine Color Yellow (Yellow) Urine Appearance Clear (Clear) Urine pH 5.5 (5.0-9.0) Ur Specific [place] 1.020 (1.001-1.035) Urine Protein Negative (Negative) mg/dL Urine Glucose (UA) Negative (Negative) mg/dL Urine Ketones Negative (Negative) mg/dL Ur Blood (Man) Negative (Negative) Urine Nitrate Negative (Negative) Urine Bilirubin Negative (Negative) Urine Urobilinogen 0.2 (<2.0) mg/dL Leukocyte Esterase Rfl Negative (Negative) MONIKA/UL POC Urine HCG, Qual Negative (Negative) Urine Opiates Screen Negative (Negative) Urine Methadone Screen Negative (Negative) Ur Barbiturates Screen Negative (Negative) Ur Phencyclidine Scrn Negative (Negative) Ur Amphetamine Screen Negative (Negative) U Benzodiazepines Scrn Negative (Negative) Urine Cocaine Screen Negative (Negative) U Cannabinoids Screen Negative (Negative) Ethyl Alcohol < 10 (<10) mg/dL SARS-CoV-2 RNA (RT-PCR) Negative (Negative) <Bettye Alexander, MUSEUM ARCHIVIST - Last Filed: 02/01/25 15:51> Lab Results 02/01/25 02/01/25 02/02/25 Range/Units 18:41 18:47 05:37 WBC 5.8 (4.5-10.0) K/mm3 RBC 4.23 (4.2-5.4) M/mm3 Hgb 11.3 L (12.0-15.0) g/dL Hct 36.5 L (37.0-47.0) % MCV 86.3 (80-100) fl MCH 26.7 (26-34) pg MCHC 31.0 L (32-36) g/dl RDW 13.9 (11.5-14.5) % Plt Count 214 (150-375) k/mm3 MPV 12.0 H (7.4-10.4) fl Immature Gran % (Auto) 0.3 (0-0.5) % Neut % (Auto) 57.4 (45.5-73.1) % Lymph % (Auto) 30.9 (18.3-44.2) % [place] % (Auto) 8.8 H (2.6-8.5) % Eos % (Auto) 1.9 (0-4.4) % Baso % (Auto) 0.7 (0.2-1.2) % Lymph # (Auto) 1.80 (0.9-3.2) K/mm3 [place] # (Auto) 0.5 (0.1-0.6) K/mm3 Eos # (Auto) 0.1 (0-0.3) K/mm3 Baso # (Auto) 0.0 (0.0-0.1) K/mm3 Abs Immat Gran (auto) 0.02 (0.00-0.031) K/mm3 Absolute Neuts (auto) 3.3 (1.3-6.7) K/mm3 Absolute Nucleated RBC 0.000 (0.0-0.012) K/mm3 Nucleated RBC % 0.0 (0.0-0.2) % Sodium 140 (137-145) mmol/L Potassium 3.8 (3.4-5.0) mmol/L Chloride 107 (98-107) mmol/L Carbon Dioxide 22 (22-30) mmol/L Anion Gap 11 (4-12) mmol/L BUN 8 (7-17) mg/dL Creatinine 0.81 (0.7-1.0) mg/dL Estim Creat Clear Calc 80 ml/min Estimated GFR > 60 (59 - ) Glucose 92 (65-110) mg/dL Calcium 9.3 (8.4-10.2) mg/dL Total Bilirubin 0.7 (0.2-1.3) mg/dL AST 25 (14-36) U/L ALT 13 (6-35) U/L Alkaline Phosphatase 59 (38-126) U/L Total Protein 8.0 (6.3-8.2) g/dL Albumin 4.7 (3.5-5.1) g/dL TSH (Reflex) 0.547 (0.465-4.68) uIU/mL Urine Color Yellow (Yellow) Urine Appearance Clear (Clear) Urine pH 5.5 (5.0-9.0) Ur Specific [place] 1.020 (1.001-1.035) Urine Protein Negative (Negative) mg/dL Urine Glucose (UA) Negative (Negative) mg/dL Urine Ketones Negative (Negative) mg/dL Ur Blood (Man) Negative (Negative) Urine Nitrate Negative (Negative) Urine Bilirubin Negative (Negative) Urine Urobilinogen 0.2 (<2.0) mg/dL Leukocyte Esterase Rfl Negative (Negative) MONIKA/UL POC Urine HCG, Qual Negative (Negative) Urine Opiates Screen Negative (Negative) Urine Methadone Screen Negative (Negative) Ur Barbiturates Screen Negative (Negative) Ur Phencyclidine Scrn Negative (Negative) Ur Amphetamine Screen Negative (Negative) U Benzodiazepines Scrn Negative (Negative) Urine Cocaine Screen Negative (Negative) U Cannabinoids Screen Negative (Negative) Ethyl Alcohol < 10 (<10) mg/dL SARS-CoV-2 RNA (RT-PCR) Negative (Negative) <Carlitos Robles MD - Last Filed: 02/01/25 21:15> Lab Results 02/01/25 02/01/25 02/02/25 Range/Units 18:41 18:47 05:37 WBC 5.8 (4.5-10.0) K/mm3 RBC 4.23 (4.2-5.4) M/mm3 Hgb 11.3 L (12.0-15.0) g/dL Hct 36.5 L (37.0-47.0) % MCV 86.3 (80-100) fl MCH 26.7 (26-34) pg MCHC 31.0 L (32-36) g/dl RDW 13.9 (11.5-14.5) % Plt Count 214 (150-375) k/mm3 MPV 12.0 H (7.4-10.4) fl Immature Gran % (Auto) 0.3 (0-0.5) % Neut % (Auto) 57.4 (45.5-73.1) % Lymph % (Auto) 30.9 (18.3-44.2) % [place] % (Auto) 8.8 H (2.6-8.5) % Eos % (Auto) 1.9 (0-4.4) % Baso % (Auto) 0.7 (0.2-1.2) % Lymph # (Auto) 1.80 (0.9-3.2) K/mm3 [place] # (Auto) 0.5 (0.1-0.6) K/mm3 Eos # (Auto) 0.1 (0-0.3) K/mm3 Baso # (Auto) 0.0 (0.0-0.1) K/mm3 Abs Immat Gran (auto) 0.02 (0.00-0.031) K/mm3 Absolute Neuts (auto) 3.3 (1.3-6.7) K/mm3 Absolute Nucleated RBC 0.000 (0.0-0.012) K/mm3 Nucleated RBC % 0.0 (0.0-0.2) % Sodium 140 (137-145) mmol/L Potassium 3.8 (3.4-5.0) mmol/L Chloride 107 (98-107) mmol/L Carbon Dioxide 22 (22-30) mmol/L Anion Gap 11 (4-12) mmol/L BUN 8 (7-17) mg/dL Creatinine 0.81 (0.7-1.0) mg/dL Estim Creat Clear Calc 80 ml/min Estimated GFR > 60 (59 - ) Glucose 92 (65-110) mg/dL Calcium 9.3 (8.4-10.2) mg/dL Total Bilirubin 0.7 (0.2-1.3) mg/dL AST 25 (14-36) U/L ALT 13 (6-35) U/L Alkaline Phosphatase 59 (38-126) U/L Total Protein 8.0 (6.3-8.2) g/dL Albumin 4.7 (3.5-5.1) g/dL TSH (Reflex) 0.547 (0.465-4.68) uIU/mL Urine Color Yellow (Yellow) Urine Appearance Clear (Clear) Urine pH 5.5 (5.0-9.0) Ur Specific [place] 1.020 (1.001-1.035) Urine Protein Negative (Negative) mg/dL Urine Glucose (UA) Negative (Negative) mg/dL Urine Ketones Negative (Negative) mg/dL Ur Blood (Man) Negative (Negative) Urine Nitrate Negative (Negative) Urine Bilirubin Negative (Negative) Urine Urobilinogen 0.2 (<2.0) mg/dL Leukocyte Esterase Rfl Negative (Negative) MONIKA/UL POC Urine HCG, Qual Negative (Negative) Urine Opiates Screen Negative (Negative) Urine Methadone Screen Negative (Negative) Ur Barbiturates Screen Negative (Negative) Ur Phencyclidine Scrn Negative (Negative) Ur Amphetamine Screen Negative (Negative) U Benzodiazepines Scrn Negative (Negative) Urine Cocaine Screen Negative (Negative) U Cannabinoids Screen Negative (Negative) Ethyl Alcohol < 10 (<10) mg/dL SARS-CoV-2 RNA (RT-PCR) Negative (Negative) <Stefano Oseguera MD - Last Filed: 02/02/25 07:01> Discharge Plan Discharge Clinical Impression: Hallucination, visual, Tactile hallucination <Bettye Alexander APRN - Last Filed: 02/01/25 15:51> Patient Disposition: Psychiatric Hosp <Bettye Alexander APRN - Last Filed: 02/01/25 15:51> Condition: Stable <Bettye Alexander APRN - Last Filed: 02/01/25 15:51> Patient Language: Nepali <Bettye Machado January, - Last Filed: 02/01/25 15:51> Prescriptions: No Action docusate sodium 100 mg capsule 100 mg PO BID Qty: 60 0RF Preparation H 0.25-14-74.9 % ointment 1 applic RECTAL QAM AND QHS Qty: 28 0RF hydroxyzine HCl 25 mg tablet 25 mg PO TID PRN (Reason: anxiety) Qty: 30 0RF ondansetron 4 mg tablet,disintegrating 4 mg PO Q8H PRN (Reason: nausea and vomiting) Qty: 10 0RF <Bettye Machado January, - Last Filed: 02/01/25 15:51> Follow-up/Referrals: UNKNOWN,DOCTOR [Non-Staff] - <Bettye Machado January, - Last Filed: 02/01/25 15:51>
[2025-02-01 18:48] LABS: BEDSIDEPREGUCG Negative (Negative)
[2025-02-01 18:49] LABS: Basophils Percent Auto 0.7 % (0.2-1.2); Eosinophils Absolute Auto 0.1 K/mm3 (0-0.3); Eosinophils Percent Auto 1.9 % (0-4.4); Hematocrit 36.5 % (37.0-47.0); Hemoglobin 11.3 g/dL (12.0-15.0); Immature Granulocyte Absolute 0.02 K/mm3 (0.00-0.031); Immature Granulocyte Percent A 0.3 % (0-0.5); Lymphocytes Percent Auto 30.9 % (18.3-44.2); Mean Corpuscular Hemoglobin 26.7 pg (26-34); Mean Corpuscular Volume 86.3 fl (80-100); Monocytes Absolute Auto 0.5 K/mm3 (0.1-0.6); Monocytes Percent Auto 8.8 % (2.6-8.5); Neutrophils Absolute Auto 3.3 K/mm3 (1.3-6.7); Neutrophils Percent Auto 57.4 % (45.5-73.1); Platelet Count Result 214 k/mm3 (150-375); Red Blood Count 4.23 M/mm3 (4.2-5.4); Red Cell Distribution Width 13.9 % (11.5-14.5); White Blood Count 5.8 K/mm3 (4.5-10.0)
[2025-02-01 19:01] LABS: Alanine Aminotransferase 13 U/L (6-35); Albumin Level 4.7 g/dL (3.5-5.1); Alkaline Phosphatase 59 U/L (38-126); Anion Gap 11 mmol/L (4-12); Aspartate Amino Transferase 25 U/L (14-36); Bilirubin,Total 0.7 mg/dL (0.2-1.3); Blood Urea Nitrogen 8 mg/dL (7-17); Calcium 9.3 mg/dL (8.4-10.2); Carbon Dioxide 22 mmol/L (22-30); Chloride 107 mmol/L (98-107); Estimated CRCL calculation 80 ml/min; Estimated Glomerular Filt Rate > 60; Glucose 92 mg/dL (65-110); Potassium 3.8 mmol/L (3.4-5.0); Sodium 140 mmol/L (137-145)
[2025-02-01 19:05] LABS: Ethanol < 10 mg/dL (<10)
[2025-02-01 19:12] LABS: Amphetamine Screen Urine Negative (Negative); Barbiturate Screen Urine Negative (Negative); Benzodiazepines Screen Urine Negative (Negative); Cannabinoid Screen Urine Negative (Negative); Cocaine Screen Urine Negative (Negative); Methadone Screen Urine Negative (Negative); Opiate Screen Urine Negative (Negative); Phencyclidine Screen Urine Negative (Negative)
[2025-02-01 19:25] LABS: Add Urine Microscopic? NO; Appearance Urine Clear (Clear); Bilirubin Urine Negative (Negative); Blood Urine Negative (Negative); Color Urine Yellow (Yellow); Glucose Urine UA Negative (Negative); Ketones Urine Negative (Negative); Leukocyte Esterase Ur Negative LEU/UL (Negative); Nitrate Urine Negative (Negative); Protein Urine Negative (Negative); Urobilinogen Urine 0.2 mg/dL (<2.0); pH Urine 5.5 (5.0-9.0)
[2025-02-01 19:36] LABS: Thyroid Stimulating Hormone Reflex 0.547 uIU/mL (0.465-4.68)
--- NOTE | 2025-02-01 23:30 | PC.NURSE ---
This RN spoke with [facility] and was told they are declining pt due to them thinking this is a reaction from Stacey
[2025-02-02 00:54] VITALS: BP 114/76; PULSE 82; RESP 14; TEMP 36.7; O2SAT 100
[2025-02-02 06:20] LABS: SARS-CoV-2 RNA PCR Negative (Negative)
--- NOTE | 2025-02-02 08:32 | PC.NURSE ---
Chris called with accepting physician, Dr. Arango. States she does not have a bed yet but will call back with report and bed number.
[2025-02-02 09:26] VITALS: BP 111/75; PULSE 96; RESP 16; TEMP 36.9; O2SAT 98
--- NOTE | 2025-02-02 09:45 | PC.NURSE ---
Provided with menu for breakfast.
--- NOTE | 2025-02-02 09:50 | PC.NURSE ---
Tania at [facility] called with accepting bed number - [id number].
== END 2025-02-02 10:55 ==
PROVIDERS: Nurse Practitioner Family; Emergency Provider Emergency Medicine
DX: R44.1 Visual hallucinations (principal); R44.2 Other hallucinations; F41.9 Anxiety disorder, unspecified; Z11.59 Encounter for screening for other viral diseases
CPT/HCPCS: 36415; 80053; 80307; 81003; 81025; 82077; 84443; 85025; 87635; 99285

== ENCOUNTER 2025-07-11 13:34 | Emergency (ER) | payer OTHER, SELFPAY ==
[2025-07-11 13:50] VITALS: BP 132/86; PULSE 88; RESP 16; TEMP 36.4; O2SAT 98
[2025-07-11 14:54] LABS: EDSTREPNEGPOS1 Positive (Negative)
--- NOTE | 2025-07-11 16:54 | ED_ITS ---
HPI - URI/Sore Throat General Chief Complaint: Upper Respiratory Infection Stated Complaint: Congestion/Bodyaches Time Seen by Provider: 07/11/25 14:30 Source: patient and RN notes reviewed Mode of arrival: ambulatory Limitations: no limitations History of Present Illness HPI Narrative: 19-year-old female presents [facility] complaining of sore throat, body aches, slight congestion last 7 days. Patient denies any other upper respiratory symptoms, fevers, body aches, chills, nausea, vomiting, diarrhea, chest pain, abdominal pain, difficulty breathing, shortness of breath, urinary symptoms, or any other symptoms. Patient taking Tylenol help with symptoms. Patient denies any significant past medical history. Related Data Allergies Allergy/AdvReac Type Severity Reaction Status Date / Time ondansetron (From Zofran) Allergy Severe Hallucinati Verified 07/11/25 13:43 ng Review of Systems Review of Systems: CONSTITUTIONAL: Denies fever, chills, or sweats. Positive for body aches. EYES: Denies visual changes, redness, or discharge. ENT: Denies rhinorrhea, or otalgia. Positive sore throat congestion. CARDIOVASCULAR: Denies chest pain, palpitations, or edema. RESPIRATORY: Denies cough, wheezing, or dyspnea. GASTROINTESTINAL: Denies abdominal pain, nausea, vomiting, or diarrhea. GENITOURINARY: Denies dysuria or hematuria. SKIN: Denies rash or itching. MUSCULOSKELETAL: Denies back pain, joint pain, or myalgia. NEUROLOGIC: Denies headache, numbness, or weakness. PSYCHIATRIC: Denies anxiety or depression. All other systems reviewed are negative, except as documented in HPI. COUNTS INCLUDE 234 BEDS AT THE [facility] Past Medical History Medical History No pertinent past medical history Surgical History Surgical History History of laparoscopic appendectomy 09/20/[address] Pearson No pertinent past surgical history Social History Social History Smoking status: Never smoker Alcohol intake: never Substance use: never Substance use type: does not use Do You Feel Safe in your Home?: Yes Lack of Transportation: No Lack of Food: Never True Current Housing: I Have Housing Concerned About Future Housing: No Difficulty Paying Gas/Electric Bills: No Difficulty Paying for Meds: No Currently Unemployed: YES Education: High School Diploma/GED Difficulty w/ Childcare or Family Care: No Comments At the time of my signature, I reviewed and agree with the nursing past medical, surgical, social, and family history. There is no relevant family history pertinent to the patient complaint. Exam Narrative: GENERAL: This is a well-nourished, well-developed adult, in no apparent distress. They are non ill-appearing, nontoxic appearing. HEAD: normocephalic, atraumatic. EYES: Sclera clear/white. Conjunctiva normal. Vision is grossly intact. Extraocular movements intact EARS: External ears normal, auditory canals clear and without drainage, TMs normal without perforation. Hearing grossly intact. NOSE: External nose normal with no obvious nasal discharge, nasal turbinates without redness, no rhinorrhea. THROAT: Mucous membranes moist, posterior pharynx clear, erythemic without swelling, red and patchy Uvula midline. NECK: Neck supple, non-tender without lymphadenopathy, masses or thyromegaly. CARDIOVASCULAR: Regular rate and rhythm without murmurs, gallops, or rubs. RESPIRATORY: Clear to auscultation. Breath sounds equal bilaterally. No wheezes, rales, or rhonchi. SKIN: warm, Dry, intact with no suspicious lesions or rash, good texture and turgor. NEURO: awake, alert, and oriented to person, place and time. There were no obvious focal neurologic abnormalities. EXTREMITIES: No joint tenderness, effusion, or edema noted. Course Course Emergency Course: Portions of this record may have been created with voice recognition software Level of Care: Express Care Visit Vital Signs Vital signs: Vital Signs Temperature 97.6 F 07/11/25 13:50 Pulse Rate 88 07/11/25 13:50 Respiratory Rate 16 07/11/25 13:50 Blood Pressure 132/86 07/11/25 13:50 Pulse Oximetry 98 07/11/25 13:50 Temperature 97.6 F 07/11/25 13:50 Pulse Rate 88 07/11/25 13:50 Respiratory Rate 16 07/11/25 13:50 Blood Pressure 132/86 07/11/25 13:50 Pulse Oximetry 98 07/11/25 13:50 Reviewed MDM - URI/Sore Throat MDM Narrative Medical decision making narrative: Rapid strep is positive. Symptoms consistent with strep pharyngitis. Will treat with amoxicillin. Discussed physical exam findings. Advised supportive measures and signs/symptoms to go to the ER. Pt is appropriate for outpt treatment and f/u. Differential Diagnosis Differential diagnosis: Likely upper respiratory infection, sinusitis, viral infection and pharyngitis Lab Data Attestation: I reviewed the patient's lab results. Labs: Lab Results 07/11/25 Range/Units 14:00 POC Grp A Strep Screen Positive (Negative) Critical Care Time Critical Care Time Critical Care Time: No Discharge Plan Discharge Clinical Impression: Pharyngitis Qualifiers: Pharyngitis/tonsillitis etiology: streptococcus Qualified Code(s): J02.0 - Streptococcal pharyngitis Patient Disposition: Home Condition: Stable Instructions: Antibiotic Form, Strep Throat (ED) Additional Instructions: You tested positive for strep throat. ?Please take the amoxicillin as prescribed until gone. ?You will be contagious for 24 hours after starting the medication. ?After 24 hours on antibiotics throw tooth brush away and start using a new one. Wash your sheets and cup/water bottle that is used daily. Do not share drinks. Take Tylenol or Ibuprofen as needed for pain or fever, follow instructions on the bottle. Rest and stay hydrated. ?Follow up with your PCP in 3 to 5 days if symptoms are not improving. ?Go to the ER immediately if you develop worsening symptoms such as shortness of breath, difficulty swallowing, worsening fevers, nausea vomiting, chest pain, or any serious concerns. ? Patient Language: Ghanaian Prescriptions: New amoxicillin 500 mg tablet 500 mg PO Q12H 10 Days Qty: 20 0RF Follow-up/Referrals: PHYSICIAN,DECK SCALER [Primary Care Provider, Internal Medicine] Time of Disposition: 14:47
== END 2025-07-11 14:51 | disposition home or self-care (01) ==
DX: J02.0 Streptococcal pharyngitis (principal)
CPT/HCPCS: 87880; 99213; G0463